=== PATIENT | male | born 1975 | race Caucasian/White ===

== ENCOUNTER 2021-12-25 13:46 | Inpatient (IN) | payer OTHER, SELFPAY ==
[2021-12-25] VITALS (79 sets, daily range): BP systolic 60–260; BP diastolic 40–232; PULSE 102–130; RESP 17–54; TEMP 36.1–38.2; O2SAT 83–100; BMI 22.7
--- NOTE | ~2021-12-25 | XR_ITS ---
EXAM: XR abdomen NG/feed tube insert DATE: 12/25/2021 22:29 HISTORY: OG INSERT . COMPARISON: None available. FINDINGS: NG tube tip and side port project over the stomach. Clear lung bases. Normal bowel gas bubba tamar. No organomegaly. No abnormal abdominal calcification. Regional bones and soft tissues normal for age. IMPRESSION: NG tube, in good position. No radiographic evidence of obstruction or ileus. Reviewed, dictated and finalized at location K.
--- NOTE | ~2021-12-25 | CT_ITS ---
EXAMINATION: CT brain wo con DATE: 12/25/2021 15:08 INDICATION: Unresponsive. Fall. TECHNIQUE: Computed tomography (CT) of the head was performed without intravenous contrast. The mA wa s adjusted according to patient size. Iterative reconstruction technique was employed. The dose-lengt h product was 529.67 mGy-cm. COMPARISON: None FINDINGS: There is an old infarct in left frontal lobe. There is no intracranial hemorrhage, acute in farction, or abnormal intracranial mass lesion. The ventricles are normal in size. The paranasal sinu ses are clear. The mastoid air cells are normal. The orbits are normal. There are calcifications in l eft frontal scalp. IMPRESSION: 1. Old infarct in left frontal lobe. Reviewed, dictated and finalized at location B.
--- NOTE | ~2021-12-25 | XR_ITS ---
EXAMINATION: XR chest 1V portable 12/25/2021 15:15 INDICATION: Transient alteration of awareness PROCEDURE: AP view of the chest COMPARISON: No prior studies for comparison. FINDINGS: The lungs are clear. The cardiomediastinal silhouette is within normal limits. There are no pleural effusions. There is no pneumothorax suspected. IMPRESSION: 1: NO ACUTE CARDIOPULMONARY DISEASE. Reviewed, dictated and finalized at location A.
--- NOTE | ~2021-12-25 | XR_ITS ---
XR chest ET placement 12/26/2021 09:00 Indication: Endotracheal tube placement Procedure: AP portable chest Comparison: 12/25/2021 Findings: Endotracheal tube tip 4.8 cm above the sarina. NG tube in the stomach. Heart size normal. L eft basilar airspace disease may represent atelectasis or pneumonia. No significant effusion or pneum othorax. Impression: 1: Left basilar airspace disease, atelectasis versus pneumonia. Reviewed, dictated and finalized at location B. Impression: 1: Left basilar airspace disease, atelectasis versus pneumonia.
--- NOTE | ~2021-12-25 | CT_ITS ---
EXAMINATION: CT cervical spine wo con DATE: 12/25/2021 15:08 INDICATION: Fall. TECHNIQUE: Computed tomography (CT) of the cervical spine was performed without intravenous contrast. Automated exposure control and iterative reconstruction technique were employed. The dose-length pro duct was 430.57 mGy-cm. COMPARISON: None FINDINGS: C1 is fused to the occiput. Posterior C1 ring is ununited, a normal variant. There is 7 deg medardo dextrocurvature of cervical spine. There is kyphosis of cervical spine. There is 2 mm retrolisth esis of C5 and C6. Vertebral body heights are normal. There is mildly decreased disc height at C4-C5 and moderately decreased disc height at C5-C6. The following disc levels are specifically discussed: C2-C3: There is mild bilateral uncovertebral joint osteoarthritis. There is severe right and mild lef t facet joint osteoarthritis. There is mild right neural foraminal stenosis. There is no central shannan l stenosis. C3-C4: There is mild bilateral uncovertebral joint osteoarthritis. There is mild left facet joint ost eoarthritis. There is no neural foraminal stenosis. There is no central canal stenosis. C4-C5: There is mild bilateral uncovertebral joint osteoarthritis. There is mild left facet joint ost eoarthritis. There is no neural foraminal stenosis. There is no central canal stenosis. C5-C6: There is severe bilateral uncovertebral joint osteoarthritis. There is mild right facet joint osteoarthritis. There is mild bilateral neural foraminal stenosis. There is mild central canal stenos is. C6-C7: There is mild right uncovertebral joint osteoarthritis. There is no facet joint osteoarthritis . There is no neural foraminal stenosis. There is no central canal stenosis. C7-T1: There is no uncovertebral joint osteoarthritis. There is mild bilateral facet joint osteoarthr itis. There is no neural foraminal stenosis. There is no central canal stenosis. IMPRESSION: 1. No fracture. 2. Moderate spondylosis at C5-C6 and mild spondylosis at other levels. Reviewed, dictated and finalized at location B.
--- NOTE | ~2021-12-25 | US_ITS ---
EXAMINATION: US abdomen limited DATE: 12/26/2021 10:27 INDICATION: Elevated liver function tests TECHNIQUE: Multiple grayscale and Doppler ultrasound images of the abdomen were obtained. COMPARISON: None available FINDINGS: The head and body of the pancreas are normal. The pancreatic tail is obscured by bowel gas. The liver demonstrates increased echogenicity, heterogenous echotexture, and decreased through trans mission. No surface nodularity. Normal hepatopetal flow in the main portal vein. The gallbladder is n ormal with no abnormal wall thickening, pericholecystic fluid or stones. The normal common bile duct measures 3 mm. There was no sonographic Moyer sign. IMPRESSION: 1. Diffuse hepatic steatosis. Reviewed, dictated and finalized at location A.
--- NOTE | ~2021-12-25 | XR_ITS ---
EXAMINATION: XR chest ET placement Exam Date/Time: 12/25/2021 22:20 CDT HISTORY: intubation Comparison: Same date, 3:11 PM. RESULT: Lines, tubes, and devices: Endotracheal tube terminating 5 mm above the sarina. NG tube traversing i mage terminating out of the [id number]. Lungs and pleura: Clear. Cardiomediastinal silhouette: Stable cardiomediastinal silhouette. Other: No acute osseous or upper abdominal finding. IMPRESSION: Low positioned endotracheal tube, consider 3.5 cm retraction. Reviewed, dictated and finalized at location K.
--- NOTE | 2021-12-25 13:47 | ED.AMS ---
HPI - Altered Mental Status General Chief Complaint: Altered Mental Status <Rajinder Rubio MD - Last Filed: 12/25/21 19:01> Stated Complaint: decreased LOC, AMS <Rajinder Rubio MD - Last Filed: 12/25/21 19:01> Time Seen by Provider: 12/25/21 18:57 <Rajinder Rubio MD - Last Filed: 12/25/21 19:01> Source: patient, EMS and RN notes reviewed <Rajinder Rubio MD - Last Filed: 12/25/21 19:01> Mode of arrival: EMS <Rajinder Rubio MD - Last Filed: 12/25/21 19:01> Limitations: clinical condition <Rajinder Rubio MD - Last Filed: 12/25/21 19:01> History of Present Illness HPI narrative: Patient is 46 years old white male came to the emergency room by ambulance from home. Patient lives at the second floor with his mom, did not see him for 3 days, got worried went upstairs and found him laying on the floor, moaning and incoherent,patient is known to drink of vodka daily, unknown last drink. In the ambulance patient had seizure-like activity lasted for 20 seconds and then became diaphoretic and unresponsive <Rajinder Rubio MD - Last Filed: 12/25/21 19:01> Related Data Home Medications: Home Medications Medication Instructions Recorded Confirmed No Home Medications 12/25/21 12/25/21 <Rajinder Rubio MD - Last Filed: 12/25/21 19:01> Allergies/Adverse Reactions: Allergies Allergy/AdvReac Type Severity Reaction Status Date / Time No Known Allergies Allergy Verified 12/25/21 14:29 <Rajinder Rubio MD - Last Filed: 12/25/21 19:01> Review of Systems Review of Systems: All systems reviewed & are unremarkable except as noted in HPI and below <Rajinder Rubio MD - Last Filed: 12/25/21 19:01> Exam Narrative: General appearance: Well-developed, well-nourished Skin: Multiple scattered bruises Head: Normocephalic, nontraumatic Eyes: Thick whitish, yellowish eye discharge bilaterally ENT: Oropharynx normal, ears normal, nose normal Neck: Supple, nontender Chest and respiratory: Airway patent, no respiratory distress, no accessory muscle use Heart: Regular rate/rhythm Abdomen: Soft, nontender, no organomegaly, quiet bowel sounds Vascular: Normal peripheral pulses, normal capillary refill. Musculoskeletal: Normal range of motion, nontender back Neurologic: Responsive to painful stimulation by opening eyes <Rajinder Rubio MD - Last Filed: 12/25/21 19:01> Course Course Emergency Course: Patient signed to me pending transfer to the [facility] at 1900. I did personally evaluate patient, he is still tachycardic, blood pressure now hypertensive, mental status near baseline, he is still quite tremulous so I did order additional doses of Ativan. I did note that his troponin had been elevated, personally saw his EKG did not note any STEMI I did order rectal ASA. [facility] has no ICU beds so case discussed with ICU Dr Bar and hospitalist Dr Cortes for admission, patient accepted. <Nelia Donaldson MD - Last Filed: 12/25/21 21:28> Reevaluation(s) Reevaluation #1: Patient arrived unresponsive, high likely postictal, subsequently became awake, alert and oriented x4, denying any pain, stating me last drink was last night, currently having tremors which is high likely alcohol withdrawal. Ativan IV ordered. Waiting to transfer patient to [facility]. <Rajinder Rubio MD - Last Filed: 12/25/21 19:01> Date: 12/25/21 <Rajinder Rubio MD - Last Filed: 12/25/21 19:01> Time: 18:55 <Rajinder Rubio MD - Last Filed: 12/25/21 19:01> Vital Signs Vital signs: Vital Signs Temperature 97 F L 12/25/21 13:50 Pulse Rate 125 H 12/25/21 13:50 Respiratory Rate 38 H 12/25/21 13:50 Blood Pressure 78/64 L 12/25/21
[2021-12-25 14:01] LABS: Glucose Point of Care 147 mg/dl (65-105)
[2021-12-25] MEDS: THIAMINE HCL 200 MG/2 ML VIAL 100 MG IV PUSH (14:03)
[2021-12-25] MEDS: SODIUM CHLORIDE 0.9% IV 1,000 ML 999 ML IV CONT ×3 (14:06→14:28)
[2021-12-25 14:11] LABS: Basophils Absolute Auto 0.1 K/mm3 (0.0-0.1); Basophils Percent Auto 0.6 % (0.2-1.2); Hematocrit 49.1 % (42.0-52.0); Hemoglobin 15.5 g/dL (14.0-18.0); Immature Granulocyte Absolute 0.16 K/mm3 (0.00-0.031); Immature Granulocyte Percent A 1.2 % (0-0.5); Lymphocytes Absolute Auto 1.21 K/mm3 (0.9-3.2); Lymphocytes Percent Auto 8.9 % (18.3-44.2); Mean Corpuscular HGB Conc 31.6 g/dl (32-36); Mean Corpuscular Volume 104.5 fl (80-100); Monocytes Absolute Auto 1.6 K/mm3 (0.1-0.6); Monocytes Percent Auto 11.9 % (2.6-8.5); Neutrophils Absolute Auto 10.5 K/mm3 (1.3-6.7); Neutrophils Percent Auto 77.4 % (45.5-73.1); Nucleated Red Blood Cells Perc 0.1 % (0.0-0.2); Platelet Count Result 181 k/mm3 (150-375); Red Cell Distribution Width 13.6 % (11.5-14.5); White Blood Count 13.5 K/mm3 (4.5-10.0)
[2021-12-25 14:24] LABS: INR 1.2; Prothrombin Time 14.9 Seconds (11.1-14.7)
[2021-12-25 14:25] LABS: Partial Thromboplastin Time 31.3 SECONDS (22.3-36.8)
--- NOTE | 2021-12-25 14:27 | PC.NURSE ---
pt is alert and answering most questions at this time. states his name and . 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
[2021-12-25 14:33] LABS: Lactic Acid Reflex 6.7 mmol/L (0.7-2.0)
[2021-12-25] MEDS: MULTIVITAMINS-12 INJ VIAL 1 5 ML, MULTIVITAMINS-12 INJ VIAL 2 5 ML in SODIUM CHLORIDE 0... 100 ML IV CONT (14:35)
[2021-12-25] MEDS: FOLIC ACID 1 MG/0.2 ML INJ IV PUSH (14:35)
[2021-12-25 14:36] LABS: Ethanol < 10 mg/dL (<10)
[2021-12-25 14:36] LABS: Alveolar/Arterial O2 Gradient 107.4 mmHg; Base Excess ABG -14.3 mEq/l (+/-2.0); Fractional Inspired Oxygen 36 %; HCO3 ABG 8.5 mEq/l (22.0-26.0); Oxygen Content ABG 18.5 %vol (16.0-22.0); Oxygen Saturation ABG 98.6 % (95.0-100.0); Oxyhemoglobin 97.3 % THb (90.0-100.0); PO2 ABG 131.1 mmHg (80.0-100.0); PO2 FiO2 Ratio Arterial Blood 3.64 %; Total Hemoglobin 13.4 g/dL (12.0-18.0); pH ABG 7.351 (7.350-7.450)
[2021-12-25 14:39] LABS: Device NASAL CANNULA; Modified Allen's Test Pass; PCO2 ABG 15.7 mmHg (35.0-45.0); Site Drawn RIGHT RADIAL
[2021-12-25 14:43] LABS: Ammonia 50 umol/L (9-30)
[2021-12-25 14:49] LABS: Alanine Aminotransferase 125 U/L (6-50); Albumin Level 4.9 g/dL (3.5-5.1); Alkaline Phosphatase 234 U/L (38-126); Anion Gap 34 mmol/L (8-16); Aspartate Amino Transferase 309 U/L (17-59); Bilirubin,Total 3.3 mg/dL (0.2-1.3); Blood Urea Nitrogen 52 mg/dL (9-20); Calcium 9.4 mg/dL (8.4-10.2); Carbon Dioxide 10 mmol/L (22-30); Chloride 112 mmol/L (98-107); Creatine Kinase 758 U/L (55-170); Estimated CRCL calculation 22 ml/min; Estimated Glomerular Filt Rate 20; Glucose 130 mg/dL (65-110); Magnesium 2.3 mg/dL (1.6-2.3); Potassium 3.4 mmol/L (3.4-5.0); Sodium 156 mmol/L (137-145)
[2021-12-25 15:13] LABS: Troponin I 0.129 ng/mL (0.000-0.034)
--- NOTE | 2021-12-25 15:23 | ECG_ITS ---
Measurements Intervals [place] Rate: 123 P: 0 UT: 90 QRS: 75 QRSD: 100 T: 147 QT: 373 QTc: 536 Interpretive Statements SINUS TACHYCARDIA T WAVE ABNORMALITY IN ANTEROLAT/HIGH LAT LEADS- CONSIDER ISCHEMIA BASELINE ARTIFACT- I, II, III, AVR, AVL, AVF ABNORMAL ECG Electronically Signed On 12-25-2021 20:00:51 CDT by Arnold Martines D.O.
[2021-12-25 15:29] LABS: SARS-CoV-2 RNA PCR Negative
[2021-12-25 15:43] LABS: Appearance Urine Cloudy (Clear); Bilirubin Urine 2+ (Negative); Blood Urine 3+ (Negative); Color Urine Yellow (Yellow); Glucose Urine UA Negative (Negative); Ketones Urine 2+ mg/dL (Negative); Leukocyte Esterase Ur Negative LEU/UL (Negative); Nitrate Urine Negative (Negative); Protein Urine 3+ mg/dL (Negative); Specific Grav Ur 1.015 (1.001-1.035); pH Urine 5.5 (5.0-9.0)
--- NOTE | 2021-12-25 15:48 | PC.NURSE ---
faxed to [facility] for possible admission
[2021-12-25 15:55] LABS: Amphetamine Screen Urine Negative (Negative); Barbiturate Screen Urine Negative (Negative); Benzodiazepines Screen Urine Negative (Negative); Cannabinoid Screen Urine Negative (Negative); Cocaine Screen Urine Negative (Negative); Methadone Screen Urine Negative (Negative); Opiate Screen Urine Negative (Negative); Phencyclidine Screen Urine Negative (Negative)
[2021-12-25 15:57] LABS: Amorphous Sediment Urine Few; Bacteria Urine Trace /hpf; Hyaline Casts Urine 50+ /lpf; Mucus Urine Rare /lpf; Squamous Epithelial Cell Urine Many /hpf (Few); WBC Clumps Urine Present /HPF
--- NOTE | 2021-12-25 16:05 | PCCCNOTE ---
Approached by Fire Dept/EMS transport showed pictures of scene with hoarding, beer cans. Chief went to scene and initiated a call to [facility] Crisis Intervention Team at [phone] and they request that acute care physical therapist call the crisis team. Per bedside RNChelsey he is alert and oriented and able to talk to acute care physical therapist. Met with patient at bedside, introduced self and explained role. He denies any problems with alcohol and states that they last time that he drank was a week ago. Denies wanting any help for alcohol abuse. Asked him about the living environment which fire dept felt was unsafe, he states that he can clean it up. Patient confirms [facility] insurance, does not have any specialty providers but [facility]. Asked about the living arrangements with his mom, he states that he does cook and helps her with her laundry but she can take care of herself. He states that he had two tours overseas one in [place] and one in [place] reports that his Dad when he was overseas in [place]. He has been living with his mom since 2010. States that he was advised to talk to someone one time but he doesn't want to share his life with someone that he doesn't know. Explained that we will be working with doctors to get [facility] but if they don't have a bed then we will take care of him here. Phlebotomy Services Technician spoke with [facility] and possibility of some medical beds. pc maintenance technician Shazia [facility] the [facility]. Called to [facility] Crisis Intervention team at [phone], spoke with [facility], he states that they transfer to [facility] has been initiated for the patient and bed placement team will call ER with any updates regarding bed. [facility] states after medical treatment, stabilization, their Crisis Team will be called to assist.
[2021-12-25 16:34] LABS: Add Urine Microscopic? YES
[2021-12-25] MEDS: LORazepam INJ (*CRX) 2 MG/ML VIAL 1 MG IV PUSH ×2 (16:55→19:44)
[2021-12-25 17:08] LABS: Reflex Lactic Acid Yes or No Add Lactic
[2021-12-25 17:53] LABS: Lactic Acid 2.1 mmol/L (0.7-2.0)
[2021-12-25] MEDS: LORazepam INJ (*CRX) 2 MG/ML VIAL (20:27)
--- NOTE | 2021-12-25 20:28 | PC.NURSE ---
tanya ativan 2mg iv push stat erp dr lagunas
--- NOTE | 2021-12-25 20:28 | PC.NURSE ---
pt noted to have increased shaking and decreased mentation. ERP ordered 2 mg ivp ativan. Pt unable to answer questions at this time
[2021-12-25] MEDS: LORazepam INJ (*CRX) 2 MG/ML VIAL IV PUSH (21:18)
--- NOTE | 2021-12-25 21:27 | PM.IMHP ---
H&P: HPI History of Present Illness Date/Time: 12/25/21 21:27 Chief Complaint: Unresponsive Narrative: 46-year-old male with past medical history of alcoholism was brought into the ER via EMS when he was found unresponsive at home. The patient lives in same home as his mother but lives of stairs. His mother had not seen the patient for 3 days and went to check on the patient today. She found the patient lying on the floor moaning in incoherent. The patient is known to drink vodka heavily. Reportedly at least 1 pt a day. EMS said for did that the patient had numerous empty bottles of alcohol in the home. Home was hoarding conditions. The patient was found covered in feces and urine. He had evidence of skin breakdown rashes and multiple bruises. In the ER the patient was noted to be shaking violently. ER staff and initially felt the patient was simply having alcohol withdrawal with tremors. At the time my evaluation at the bedside the patient was having rhythmic eye movements to the left and was unresponsive. After about a minute the eye movements stopped and the patient did moan out response with sternal rub shortly thereafter. But within admitted her to the patient again had rhythmic movement of his eyes. The patient was unable to follow commands. He had Yoo catheter placed in the ER. While in the ER the patient did spike a fever to 100.7. The patient had nasal cannula in place at 2 L. he had received total of 10 mg of Ativan throughout his ER course. He had received 2 L of IV fluids and a dose of thiamin. When I evaluated the patient and felt the patient was having recurrent seizures. He was maintaining his oxygen saturations but given its need for large amounts sedation and clinical status that was concerned for airway status. Subsequently have any decision to intubate the patient. Patient received volume due to seizure-like activity just prior to intubation. Then received RSI with propofol and rocuronium. Into patient was relatively uncomplicated with 7.5 ET tube. Post intubation even when sedation was weaned the patient not following commands. He was having recurrent jerking and eye deviation. The patient would have periods of decreased jerking and suspected seizure activity. Post intubation the patient did have transient hypotension. The patient received another L in fluid bolus. Patient was moved to the ICU and sedated with propofol. Once he arrived in the ICU the patient's blood pressures initially improved but then dropped again despite propofol being held. Subsequently I placed a right femoral line. And Levophed was initiated. patient was placed on Levophed. Patient was given loading dose of Keppra. While patient was in the ER and being prepared for transfer to the ICU when nursing staff gave aspirin ordered by your provider due to the patient's elevated troponin. When nursing staff went to give aspirin patient was noted to have radha blood per rectum.. The patient's brother denied the patient having any known history of tobacco or other substance use. In fact brother did not know but the patient having history of alcohol abuse. 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
[2021-12-25] MEDS: LACTATED RINGERS 1,000 ML 125 ML IV CONT (21:30)
[2021-12-25] MEDS: SODIUM BICARBONATE 8.4% 50 MEQ/50 ML SYRINGE IV PUSH (21:30)
--- NOTE | 2021-12-25 21:50 | PC.NURSE ---
Hospitalist at bedside to intubate. Valium 10 mg IVP Given.
--- NOTE | 2021-12-25 21:51 | PC.NURSE ---
150 mg propofol given IVP, RT and hospitalist at bedside.
[2021-12-25] MEDS: diazePAM INJ (*CRX) 10 MG/2 ML SYRINGE (21:52)
--- NOTE | 2021-12-25 21:52 | PC.NURSE ---
Rocruronium 25 mg given.
[2021-12-25] MEDS: RAPID SEQUENCE INTUBATION KIT 1 EACH (21:53)
--- NOTE | 2021-12-25 21:54 | PC.NURSE ---
7.5 ETT , 25 cm at the lip
--- NOTE | 2021-12-25 22:03 | PC.NURSE ---
LR changed to bolus rate per hospitalist.
--- NOTE | 2021-12-25 22:03 | PC.NURSE ---
rate 18, TV 450ml , peep 5, 50% oxygen
[2021-12-25 22:05] LABS: Anion Gap 20 mmol/L (8-16); Blood Urea Nitrogen 46 mg/dL (9-20); Calcium 8.1 mg/dL (8.4-10.2); Carbon Dioxide 13 mmol/L (22-30); Chloride 119 mmol/L (98-107); Estimated CRCL calculation 36 ml/min; Estimated Glomerular Filt Rate 36; Glucose 121 mg/dL (65-110); Sodium 152 mmol/L (137-145)
[2021-12-25 22:17] LABS: Troponin I 0.159 ng/mL (0.000-0.034)
--- NOTE | 2021-12-25 22:23 | ED.GENADULT ---
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 CT scan 12/25/2021 Surgical History Surgical History Surgical history unknown Family History Family History Other Unknown family medical history Social History Social History Smoking status: Unknown if ever smoked Alcohol intake: current Spiritual care concerns: No Course Vital Signs Vital signs: Vital Signs Temperature 97 F L 12/25/21 13:50 Pulse Rate 125 H 12/25/21 13:50 Respiratory Rate 38 H 12/25/21 13:50 Blood Pressure 78/64 L 12/25/21 13:50 Pulse Oximetry 100 12/25/21 13:50 Temperature 97.9 F 12/26/21 16:00 Pulse Rate 69 12/26/21 16:14 Respiratory Rate 18 12/26/21 16:14 Blood Pressure 133/82 12/26/21 16:00 Pulse Oximetry 100 12/26/21 16:00 Oxygen Delivery Mechanical Ventilation 12/26/21 16:00 Oxygen Flow Rate 2 12/25/21 20:36 Fraction of Inspired Oxygen 25 12/26/21 16:00 Medical Decision Making Vital Signs Vital Signs: Vital Signs Temperature 97 F L 12/25/21 13:50 Pulse Rate 125 H 12/25/21 13:50 Respiratory Rate 38 H 12/25/21 13:50 Blood Pressure 78/64 L 12/25/21 13:50 Pulse Oximetry 100 12/25/21 13:50 Temperature 97.9 F 05/19/22 16:00 Pulse Rate 69 12/26/21 16:14 Respiratory Rate 18 12/26/21 16:14 Blood Pressure 133/82 12/26/21 16:00 Pulse Oximetry 100 12/26/21 16:00 Oxygen Delivery Mechanical Ventilation 12/26/21 16:00 Oxygen Flow Rate 2 12/25/21 20:36 Fraction of Inspired Oxygen 25 12/26/21 16:00 Lab Data Result diagrams: 12/26/21 06:39 12/26/21 10:23 Labs: Lab Results 12/25/21 12/25/21 12/25/21 Range/Units 13:52 13:55 13:55 WBC 13.5 H (4.5-10.0) K/mm3 RBC 4.70 (4.6-6.20) M/mm3 Hgb 15.5 (14.0-18.0) g/dL Hct 49.1 (42.0-52.0) % MCV 104.5 H (80-100) fl MCH 33.0 (26-34) pg MCHC 31.6 L (32-36) g/dl RDW 13.6 (11.5-14.5) % Plt Count 181 (150-375) k/mm3 MPV 11.0 H (7.4-10.4) fl Immature Gran % (Auto) 1.2 H (0-0.5) % Neut % (Auto) 77.4 H (45.5-73.1) % Lymph % (Auto) 8.9 L (18.3-44.2) % Lanier % (Auto) 11.9 H (2.6-8.5) % Eos % (Auto) 0.0 (0-4.4) % Baso % (Auto) 0.6 (0.2-1.2) % Lymph # (Auto) 1.21 (0.9-3.2) K/mm3 Lanier # (Auto) 1.6 H (0.1-0.6) K/mm3 Eos # (Auto) 0.0 (0-0.3) K/mm3 Baso # (Auto) 0.1 (0.0-0.1) K/mm3 Abs Immat Gran (auto) 0.16 H (0.00-0.031) K/mm3 Absolute Neuts (auto) 10.5 H (1.3-6.7) K/mm3 Absolute Nucleated RBC 0.0 (0.0-0.012) K/mm3 Nucleated RBC % 0.1 (0.0-0.2) % PT (11.1-14.7) Seconds INR APTT (22.3-36.8) SECONDS Sodium 156 H (137-145) mmol/L Potassium 3.4 (3.4-5.0) mmol/L Chloride 112 H (98-107) mmol/L Carbon Dioxide 10 L (22-30) mmol/L Anion Gap 34 H (8-16) mmol/L BUN 52 H (9-20) mg/dL Creatinine 3.30 H (0.7-1.3) mg/dL Estim Creat Clear Calc 22 ml/min Estimated GFR 20 L (59 - ) Glucose 130 H (65-110) mg/dL POC Capillary Glucose 147 H (65-105) mg/dl Lactic Acid (0.7-2.0) mmol/L Calcium 9.4 (8.4-10.2) mg/d
[2021-12-25] MEDS: AMPICILLIN SULB 3 GM/NS 100 ML 3 GM/100 ML VIAL IVPB (22:25)
[2021-12-25] MEDS: PROPOFOL IV EMULSION 200 MG/20 ML VIAL 150 MG IV PUSH (22:26)
[2021-12-25] MEDS: ASPIRIN 300 MG SUPPOSITORY RECTAL (22:26)
[2021-12-25] MEDS: ROCURONIUM BROMIDE 50 MG/5 ML VIAL 25 MG IV PUSH (22:26)
[2021-12-25] MEDS: PROPOFOL IV EMULSION 100 ML 1.83 MG IV CONT (22:29)
--- NOTE | 2021-12-25 22:29 | PC.NURSE ---
Pt guaic positive, provider made aware
--- NOTE | 2021-12-25 23:10 | ADMGEN ---
This patient, Marlon Cleveland, was admitted to Intensive Care Unit-11. Patient/family oriented to hospital policies and general routines including ID bracelet, bed and alarms, visiting hours, pain management, procedures, bathroom and other care routines, personal items, smoking policy, room service/diet, and visiting hours. Information on how to activate the Rapid Response Team has been discussed. Patient/Family are encouraged to report perceived risks to care and to ask questions if they do not understand what they are told or what they should do.
[2021-12-25 23:25] LABS: Folic Acid > 20.0 ng/mL (2.76->20)
[2021-12-25] MEDS: PANTOPRAZOLE SODIUM IV 40 MG VIAL 80 MG IV PUSH (23:46)
[2021-12-25] MEDS: MINERAL OIL/WHITE PETROLATUM OINTMENT 1 APPLIC EACH EYE (23:46)
[2021-12-26] VITALS (39 sets, daily range): BP systolic 55–133; BP diastolic 36–88; PULSE 65–108; RESP 16–21; TEMP 36.4–38.2; O2SAT 98–100; BMI 23.3
--- NOTE | 2021-12-26 | ECHO_ITS ---
Patient Info Name: Marlon Cleveland Age: 46 years : 1975 Gender: Male Ht: 67 in Wt: 148 lbs BSA: 1.79 m2 HR: 72 bpm BP: 127 / 91 mmHg Heart Rhythm: Sinus Rhythm Technical Quality: Fair Exam Date: 12/26/2021 1:46 PM Exam Location: [facility] Patient Status: Inpatient Admit Date: 12/25/2021 Staff Ordering Physician: Nicole Bar MD Associate Store Director: Anaya Lozada RDCS Attending Provider: Nicole Bar MD Referring Physician: Yosvany PRIETO; Exam Type: CA echo dop color flow w con Study Info Indications - ELEVATED TROPONIN R94.31 - Abnormal electrocardiogram ECG EKG Complete two-dimensional, color flow and Doppler transthoracic echocardiogram is performed with contrast to opacify the left ventricle and to improve the deliniation of the left ventricle endocardial borders. Contrast/Agitated Saline Contrast/Ag. Saline: Definity Amount: 3.00 ml Administered By: Anaya Lozada RDCS Existing IV Access: Yes IV Access Condition: patent with no signs of infiltration Summary 1. Left ventricular systolic function is low normal, estimated at 50-55%. 2. Left ventricular chamber dimension is normal. 3. There is mildly increased left ventricular wall thickness. 4. The left ventricular diastolic function is grade I diastolic dysfunction. 5. There is mild tricuspid valve regurgitation. Left Ventricle Left ventricular systolic function is low normal, estimated at 50-55%. Left ventricular chamber dimension is normal. There is mildly increased left ventricular wall thickness. The left ventricular diastolic function is grade I diastolic dysfunction. Right Ventricle Right ventricular chamber dimension is normal. Right ventricular systolic function is normal. Left Atria Left atrial chamber dimension is normal. Right Atria Right atrial chamber dimension is normal. Atrial Septum Intact interatrial septum visualized by color flow imaging. Aortic Valve The aortic valve is trileaflet. There is no aortic valve sclerosis. There is no aortic valve stenosis. There is trace aortic valve regurgitation. Pulmonic Valve The pulmonic valve is normal. There is no pulmonic valve stenosis. There is trace pulmonic regurgitation. Mitral Valve The mitral valve has normal leaflets. There is no mitral valve stenosis. There is trace mitral valve regurgitation. Tricuspid Valve The tricuspid valve leaflets are normal. There is no significant tricuspid valve stenosis. There is mild tricuspid valve regurgitation. No pulmonary hypertension, estimated pulmonary arterial systolic pressure is 29 mmHg. Pericardium/Pleural The pericardium appears normal. There is no pericardial effusion. Inferior Vena Cava Normal inferior vena cava with >50% collapse upon inspiration consistent with normal right atrial pressure, 10 mmHg. Aorta The aortic root size at the sinus of Valsalva is normal. Left Ventricular Outflow Tract Name Value Normal LVOT 2D LVOT Diameter 2.05 cm LVOT Doppler LVOT Peak Gradient 3 mmHg
[2021-12-26] MEDS: dexmedeTOMIDine 400 MCG/100 ML 400 MCG/100 ML BAG IV CONT (00:17)
[2021-12-26 00:21] LABS: Alveolar/Arterial O2 Gradient 133.5 mmHg; Base Excess ABG -6.3 mEq/l (+/-2.0); Carboxyhemoglobin 0.3 % THb (0-2.0); Fractional Inspired Oxygen 50 %; HCO3 ABG 16.4 mEq/l (22.0-26.0); Methemoglobin ABG 0.3 %THb (0-1.5); Oxygen Content ABG 18.2 %vol (16.0-22.0); Oxygen Saturation ABG 99.4 % (95.0-100.0); Oxyhemoglobin 97.9 % THb (90.0-100.0); PCO2 ABG 25.3 mmHg (35.0-45.0); PO2 ABG 194.5 mmHg (80.0-100.0); PO2 FiO2 Ratio Arterial Blood 3.89 %; Reduced Hemoglobin 1.5 %THb (0-5.0); Total Hemoglobin 12.9 g/dL (12.0-18.0); pH ABG 7.429 (7.350-7.450)
[2021-12-26 00:25] LABS: Arterial Blood Gas PEEP 5 cmH2O; Arterial Blood Gas Tidal Volume 450 ml; Arterial Blood Gas Vent Mode CMV; Arterial Blood Gas Ventilator rate 18 /MIN; Device VENTILATOR; Modified Allen's Test Pass; Site Drawn RIGHT RADIAL
[2021-12-26] MEDS: SODIUM CHLORIDE 0.9% IV 1,000 ML 999 ML IV CONT (00:25)
[2021-12-26] MEDS: NOREPINEPHRINE 8 MG/D5W 250 ML 8 MG/250 ML BAG 9.38 MG IV CONT (00:51)
[2021-12-26] MEDS: SODIUM BICARBONATE 8.4% 50 MEQ/50 ML SYRINGE 100 MEQ IV PUSH (00:54)
[2021-12-26] MEDS: FENTANYL 2,500MCG/NS250ML(*CRX 2,500 MCG/250 ML BAG IV CONT (01:10)
[2021-12-26] MEDS: MIDAZOLAM 100MG/NS 100ML(*CRX) 100 MG/100 ML BAG IV CONT (01:10)
--- NOTE | 2021-12-26 01:47 | WPDPROCEDUR ---
Procedures Central Line Placement Right Femoral: Central Line Date: 12/26/21 Central Line Time: 01:20 Discussed w/ the patient/family/POA,the placement of a central venous catheter, including its clinical necessity/indication & associated potential risks, benifits and alternatives.: Yes The patient/family/POA understand(s) and acknowledge(s) the need to proceed with central venous catheter insertion as an important element of the patient's clinical management.: Yes Time Out Performed: Yes Patient Position: trendelenburg Patient placed on monitor/pulse ox: Yes Provider Prep: mask, sterile gown, sterile gloves, Max. sterile barrier precautions, cap and hand hygiene with conventional soap/water or alcohol based hand rub Central line prep: 2% Chlorhexidine scrub Local anesthesia used: lidocaine 1% Amount of anesthesia used (ml): 3 Sterile US Technique with sterile gel/sterile probe covers: Yes Central line lumen inserted: triple Vietnamese: 7 Length (cm): 16 Depth of Insertion (cm): 15 Post Procedure: sutured in place, good blood return, all ports aspirated, flushed, capped, transparent dressing, securement product and aseptic technique maintained throughout procedure Patient tolerated procedure: well Complications: none
[2021-12-26] MEDS: SODIUM CHLORIDE 0.9% IV 1,000 ML 150 ML IV CONT ×2 (01:55→09:23)
[2021-12-26] MEDS: levETIRAcetam 1000MG/NACL100ML 1,000 MG/100 ML BAG 400 MG IVPB ×2 (02:05→09:25)
--- NOTE | 2021-12-26 03:29 | P.PCNBED_ITS ---
Procedures Intubation Intubation Date: 12/25/21 Intubation Time: 22:05 Consent: Performed emergently Sedative: other (Propofol and diazepam) Paralytic: rocuronium Laryngoscope: fiber optic video scope ET tube size: cuffed Tube secured depth (cm): 24 Tube secured location: lips Tube placement confirmation: visualized tube passing through cords, equal breath sounds bilaterally, no breath sounds over epigastrium and confirmation by capnometry Patient tolerated procedure: well Additional comments: Patient was given diazepam due to seizures. He then received a dose of propofol dosed by ER provider. Patient is also given 25 mg of rocuronium. I initially attempted intubation with a 0.0 ET tube but was slightly too large. Second attempt was 7.5 ET tube was uncomplicated. Chest x- ray was reviewed and demonstrated ET tube was deep. Patient ET tube was pulled back to 25 cm.
[2021-12-26] MEDS: AMPICILLIN SULB 3 GM/NS 100 ML 3 GM/100 ML VIAL IVPB ×3 (04:01→15:47)
[2021-12-26 05:34] LABS: Alveolar/Arterial O2 Gradient 55.3 mmHg; Base Excess ABG -5.7 mEq/l (+/-2.0); Carboxyhemoglobin 0.2 % THb (0-2.0); Fractional Inspired Oxygen 25 %; HCO3 ABG 17.1 mEq/l (22.0-26.0); Methemoglobin ABG 0.1 %THb (0-1.5); Oxygen Content ABG 16.2 %vol (16.0-22.0); Oxygen Saturation ABG 97.4 % (95.0-100.0); Oxyhemoglobin 95.1 % THb (90.0-100.0); PCO2 ABG 26.2 mmHg (35.0-45.0); PO2 ABG 91.8 mmHg (80.0-100.0); PO2 FiO2 Ratio Arterial Blood 3.67 %; Reduced Hemoglobin 4.6 %THb (0-5.0); Site Drawn LEFT BRACHIAL; pH ABG 7.433 (7.350-7.450)
[2021-12-26 05:35] LABS: Arterial Blood Gas PEEP 5 cmH2O; Arterial Blood Gas Tidal Volume 450 ml; Arterial Blood Gas Vent Mode CMV; Arterial Blood Gas Ventilator rate 18 /MIN; Device VENTILATOR
[2021-12-26] MEDS: CENTRAL LINE FLUSH 10 ML IV PUSH ×2 (05:41→13:20)
[2021-12-26 05:55] LABS: Ammonia < 9 umol/L (9-30)
[2021-12-26 06:27] LABS: Alanine Aminotransferase 92 U/L (6-50); Albumin Level 3.6 g/dL (3.5-5.1); Alkaline Phosphatase 156 U/L (38-126); Anion Gap 18 mmol/L (8-16); Aspartate Amino Transferase 221 U/L (17-59); Bilirubin,Total 1.7 mg/dL (0.2-1.3); Blood Urea Nitrogen 41 mg/dL (9-20); Calcium 7.6 mg/dL (8.4-10.2); Carbon Dioxide 17 mmol/L (22-30); Chloride 121 mmol/L (98-107); Creatine Kinase 809 U/L (55-170); Estimated CRCL calculation 45 ml/min; Estimated Glomerular Filt Rate 43; Glucose 128 mg/dL (65-110); Magnesium 2.2 mg/dL (1.6-2.3); Phosphorus 3.1 mg/dL (2.5-4.5); Potassium 2.9 mmol/L (3.4-5.0); Sodium 156 mmol/L (137-145)
[2021-12-26 06:48] LABS: Basophils Absolute Auto 0.1 K/mm3 (0.0-0.1); Basophils Percent Auto 0.9 % (0.2-1.2); Eosinophils Percent Auto 0.1 % (0-4.4); Hemoglobin 10.7 g/dL (14.0-18.0); Immature Granulocyte Absolute 0.05 K/mm3 (0.00-0.031); Immature Granulocyte Percent A 0.5 % (0-0.5); Lymphocytes Percent Auto 12.4 % (18.3-44.2); Mean Corpuscular HGB Conc 32.4 g/dl (32-36); Mean Corpuscular Hemoglobin 33.5 pg (26-34); Mean Corpuscular Volume 103.4 fl (80-100); Mean Platelet Volume 10.3 fl (7.4-10.4); Monocytes Percent Auto 10.4 % (2.6-8.5); Neutrophils Absolute Auto 7.3 K/mm3 (1.3-6.7); Neutrophils Percent Auto 75.7 % (45.5-73.1); Platelet Count Result 107 k/mm3 (150-375); Red Blood Count 3.19 M/mm3 (4.6-6.20); Red Cell Distribution Width 13.9 % (11.5-14.5); White Blood Count 9.7 K/mm3 (4.5-10.0)
--- NOTE | 2021-12-26 09:19 | WPDCNINT ---
Assessment and Plan Assessment and plan (1) Acute respiratory failure with hypoxia: Code(s): J96.01 - Acute respiratory failure with hypoxia Status: Acute Assessment and Plan: Patient was intubated on 12/26/2021 due to encephalopathy/unresponsiveness, airway protection -chest x-ray and ABGs reviewed -currently on CMV mode of ventilation, peep of 5 and FiO2 of 25% -sedated with fentanyl and Versed infusion, daily sedation vacation 2, will maintain a RASS of 0--2 (2) Alcohol withdrawal seizure with complication: Code(s): F10.239 - Alcohol dependence with withdrawal, unspecified; R56.9 - Unspecified convulsions Status: Acute Assessment and Plan: Patient with tremors and seizures, could be related to alcohol withdrawal or previous stroke in the frontal region as evident on CT scan of the head on admission -patient currently on Keppra -will add librium and pt is on PRN ATIVAN continue thiamine and folic acid (3) Acute renal failure: Qualifiers: Acute renal failure type: with acute tubular necrosis Qualified Code(s): N17.0 - Acute kidney failure with tubular necrosis Code(s): N17.9 - Acute kidney failure, unspecified Status: Acute Assessment and Plan: Patient with acute kidney injury, likely related to hypovolemia, possible rhabdomyolysis, hypotension -patient received adequate amount of IV fluids in the ER and ICU -continue with maintenance IV fluids -urine output has been, creatinine is improving -continue to monitor urine output, renal function electrolytes (4) Acute hypernatremia: Code(s): E87.0 - Hyperosmolality and hypernatremia Status: Acute Assessment and Plan: Hyponatremia related to dehydration/hypovolemia -patient has been adequately volume repleted -will switch IV fluids to 0.45% saline -will obtain serial BMPs (5) Elevated troponin: Code(s): R77.8 - Other specified abnormalities of plasma proteins Status: Acute Assessment and Plan: Elevated troponin could be related to acute kidney injury -EKG showed T-wave inversion in anterior and lateral leads -will recheck EKG and troponin -unable to administer heparin or any anticoagulation as patient had blood in stools in the ER (6) Elevated liver enzymes: Code(s): R74.8 - Abnormal levels of other serum enzymes Status: Acute Assessment and Plan: Elevated LFTs could be related to hypovolemia, alcohol liver disease, gallbladder disease -will obtain right upper quadrant ultrasound and hepatitis panel -LFTs and bilirubin trending down (7) Shock: Code(s): R57.9 - Shock, unspecified Status: Acute Assessment and Plan: Patient was hypotensive post intubation and sedation -central line was inserted in the right femoral line early this morning started on Levophed at 1 mcg/min -patient has been started on Unasyn for possible aspiration pneumonitis -lactic acid is trending down which could have been related to seizure activity -blood and urine cultures have been obtained and pending (8) GI bleed: Code(s): K92.2 - Gastrointestinal hemorrhage, unspecified Status: Acute Assessment and Plan: ER nurse noted blood in stools which she was going to administer aspirin for the elevated troponins -chest pain was not administered -GI has been consulted -hemoglobin dropped from 15.5 to 10.7 this morning, could be dilutional or GI bleed -continue PPI we q.12 hours Additional Plan DVT prophylaxis: SCDs as patient had some bloody stools in the ER Stress ulcer prophylaxis: Protonix Nutrition: NPO for now Code status: Full code Critical care time spent: 45 minutes This dictation may have been done utilizing a voice recognition system. Attempts have been made to correct errors. However, there may be uncorrected grammatical, spelling, and recognition errors present. Due to a high probability of clinically significant, life threatening deter
[2021-12-26] MEDS: FOLIC ACID 1 MG/0.2 ML INJ IV PUSH (09:25)
[2021-12-26] MEDS: THIAMINE HCL 200 MG/2 ML VIAL 100 MG IV PUSH (09:26)
[2021-12-26] MEDS: PANTOPRAZOLE SODIUM IV 40 MG VIAL IV PUSH (09:26)
[2021-12-26] MEDS: MINERAL OIL/WHITE PETROLATUM OINTMENT 1 APPLIC EACH EYE (09:26)
[2021-12-26] MEDS: SODIUM CHLORIDE 0.45% 1,000 ML 100 ML IV CONT (09:41)
--- NOTE | 2021-12-26 09:52 | ECG_ITS ---
Measurements Intervals [place] Rate: 66 P: 72 [place]: 142 QRS: 2 QRSD: 107 T: 152 QT: 553 QTc: 580 Interpretive Statements SINUS RHYTHM DELAYED PRECORDIAL R/S TRANSITION INFERIOR INFARCT, AGE INDETERMINATE ST-T WAVE ABNORMALITY IN ANTEROLAT/HIGH LAT LEADS- CONSIDER ISCHEMIA BASELINE ARTIFACT- I, II, AVR ABNORMAL ECG Electronically Signed On 12-26-2021 10:38:39 CDT by Arnold Martines D.O.
[2021-12-26 10:47] LABS: Anion Gap 14 mmol/L (8-16); Blood Urea Nitrogen 36 mg/dL (9-20); Calcium 7.6 mg/dL (8.4-10.2); Carbon Dioxide 20 mmol/L (22-30); Chloride 123 mmol/L (98-107); Estimated CRCL calculation 55 ml/min; Estimated Glomerular Filt Rate 54; Glucose 116 mg/dL (65-110); Potassium 2.9 mmol/L (3.4-5.0); Sodium 157 mmol/L (137-145)
--- NOTE | 2021-12-26 11:15 | WPDGICN ---
Assessment and Plan Assessment and plan (1) GI bleed: Code(s): K92.2 - Gastrointestinal hemorrhage, unspecified Status: Acute Assessment and Plan: Because of the history of alcohol use in abnormal liver enzymes, the esophageal variceal bleed is a possibility. However there has been no blood seen in his NG tube at this point and the blood was seen in the emergency room apparently was red. He has had no further bleeding so far that I am aware of. Will obtain stool for Hemoccult. I will plan endoscopy tomorrow morning assuming he is more stable. (2) Elevated liver enzymes: Code(s): R74.8 - Abnormal levels of other serum enzymes Status: Acute Assessment and Plan: AST was 309 yesterday in 221 today ALT likewise has come down somewhat. Albumin is actually normal range. (3) Hyperbilirubinemia: Code(s): E80.6 - Other disorders of bilirubin metabolism Status: Acute Assessment and Plan: Bilirubin which was 3.3 yesterday 1.7 today. This most likely represents his alcohol abuse, though we will need to consider other possibilities such as hepatitis. Serology has been ordered and is pending. (4) Alcohol withdrawal seizure with complication: Code(s): F10.239 - Alcohol dependence with withdrawal, unspecified; R56.9 - Unspecified convulsions Status: Acute Assessment and Plan: HisCIWA score is certainly at least in the 20s, although we cannot assess for auditory problems, headaches, nausea etcetera as he is sedated and unresponsive. (5) Acute renal failure: Qualifiers: Acute renal failure type: with acute tubular necrosis Qualified Code(s): N17.0 - Acute kidney failure with tubular necrosis Code(s): N17.9 - Acute kidney failure, unspecified Status: Acute Assessment and Plan: BUN was 52 on admission, 41 today with creatinine dropping from 3.3-1.7. We do not know what his baseline is. (6) Acute respiratory failure with hypoxia: Code(s): J96.01 - Acute respiratory failure with hypoxia Status: Acute Assessment and Plan: Because he was unresponsive emergency room he was intubated and has been intubated since admission. He did have a slightly elevated lactic acid level. Chest x-ray is negative for any acute disease. he is currently sedated with Precedex and fentanyl. Also receiving midazolam (7) Hyperammonemia: Code(s): E72.20 - Disorder of urea cycle metabolism, unspecified Status: Acute Assessment and Plan: Initial ammonia was over 50 but today it is normal. Consequently I do not think hepatic encephalopathy is a factor in his mental status issue. (8) Altered mental status: Code(s): R41.82 - Altered mental status, unspecified Status: Acute Assessment and Plan: We most likely are seeing alcohol withdrawal syndrome. We do not know what his status was over the last day or 2 because he had not been seen by family during that period of time. He was having seizures on admission and in transit to the hospital consistent with withdrawal syndrome. As far as we know there was no prior history of seizure disorder. obviously will not be able to assess his mental status completely until he is off the sedatives. GI Consult Note Consult date/time: 12/26/21 11:15 HPI: Marlon Cleveland is a 46 year old male who was brought to the emergency room yesterday when he was found unresponsive at home. He apparently had not been seen for a of couple of days. He was found lying on the floor incoherent. He has a history of alcohol abuse, drinking 1 pt of alcohol per day according to a note in the chart. The patient was having seizure activity on arrival he had to the hospital and was intubated. He has been started on sedative and also Keppra because of the seizures. Presumably he may be having some alcohol withdrawal syndrome. A CT scan of the brain showed an old infarct in the frontal lobe.
[2021-12-26 11:19] LABS: Troponin I 0.092 ng/mL (0.000-0.034)
[2021-12-26 12:30] LABS: Glucose Point of Care 98 mg/dl (65-105)
[2021-12-26 12:32] LABS: Hepatitis B Surface Antigen Negative (Negative)
[2021-12-26 12:37] LABS: HAV RESULT Negative (Negative); Hepatitis B Core IgM Result Negative (Negative)
[2021-12-26 12:49] LABS: Hepatitis C Virus Antibody Negative (Negative)
[2021-12-26] MEDS: chlordiazePOXIDE (*CRX) 25 MG CAPSULE 50 MG PO (13:20)
[2021-12-26] MEDS: PERFLUTREN LIPID MICROSPHERES 1.5 ML VIAL DILUTED TO 10 ML TOTAL VOLUME IV PUSH (14:05)
--- NOTE | 2021-12-26 14:54 | PM.IMPN ---
Progress Note: A&P Assessment and Plan (1) Acute respiratory failure with hypoxia: Code(s): J96.01 - Acute respiratory failure with hypoxia Status: Acute Assessment and Plan: Patient was intubated on 12/26/2021 due to encephalopathy/unresponsiveness, airway protection -chest x-ray and ABGs reviewed -currently on CMV mode of ventilation, peep of 5 and FiO2 of 25% -sedated with fentanyl and Versed infusion, daily sedation vacation 2, will maintain a RASS of 0--2 (2) Alcohol withdrawal seizure with complication: Code(s): F10.239 - Alcohol dependence with withdrawal, unspecified; R56.9 - Unspecified convulsions Status: Acute Assessment and Plan: Patient with tremors and seizures, could be related to alcohol withdrawal or previous stroke in the frontal region as evident on CT scan of the head on admission -patient currently on Keppra -will add librium and pt is on PRN ATIVAN continue thiamine and folic acid (3) Acute renal failure: Qualifiers: Acute renal failure type: with acute tubular necrosis Qualified Code(s): N17.0 - Acute kidney failure with tubular necrosis Code(s): N17.9 - Acute kidney failure, unspecified Status: Acute Assessment and Plan: Patient with acute kidney injury, likely related to hypovolemia, possible rhabdomyolysis, hypotension -patient received adequate amount of IV fluids in the ER and ICU -continue with maintenance IV fluids -urine output has been, creatinine is improving -continue to monitor urine output, renal function electrolytes (4) Acute hypernatremia: Code(s): E87.0 - Hyperosmolality and hypernatremia Status: Acute Assessment and Plan: Hyponatremia related to dehydration/hypovolemia -patient has been adequately volume repleted -will switch IV fluids to 0.45% saline -will obtain serial BMPs (5) Elevated troponin: Code(s): R77.8 - Other specified abnormalities of plasma proteins Status: Acute Assessment and Plan: Elevated troponin could be related to acute kidney injury -EKG showed T-wave inversion in anterior and lateral leads -will recheck EKG and troponin -unable to administer heparin or any anticoagulation as patient had blood in stools in the ER (6) Elevated liver enzymes: Code(s): R74.8 - Abnormal levels of other serum enzymes Status: Acute Assessment and Plan: Elevated LFTs could be related to hypovolemia, alcohol liver disease, gallbladder disease -will obtain right upper quadrant ultrasound and hepatitis panel -LFTs and bilirubin trending down (7) Shock: Code(s): R57.9 - Shock, unspecified Status: Acute Assessment and Plan: Patient was hypotensive post intubation and sedation -central line was inserted in the right femoral line early this morning started on Levophed at 1 mcg/min -patient has been started on Unasyn for possible aspiration pneumonitis -lactic acid is trending down which could have been related to seizure activity -blood and urine cultures have been obtained and pending (8) GI bleed: Code(s): K92.2 - Gastrointestinal hemorrhage, unspecified Status: Acute Assessment and Plan: ER nurse noted blood in stools which she was going to administer aspirin for the elevated troponins -chest pain was not administered -GI has been consulted -hemoglobin dropped from 15.5 to 10.7 this morning, could be dilutional or GI bleed -continue PPI we q.12 hours Subjective Date/time seen: 12/26/21 14:54 Interval history: 46yo male with hx of CVA and alcoholism found down. Exam Narrative: General: Well-built gentleman, in no acute distress HEENT: Pupils are equal and reactive, sclera is clear ETT in place Respiratory: Clear to auscultations bilaterally Cardiac: S1-S2 normal, regular rate and rhythm Abdomen: Soft, nontender, nondistended, hypoactive bowel sounds Extremities: No edema, warm Neuro: Patient is intubated, sedate
--- NOTE | 2021-12-26 16:03 | PM.TDS ---
Transfer Discharge Sum: Prov Provider Date of admission: 12/25/21 20:47 Primary care physician: UNKNOWN,DOCTOR Admitting clinician: Nicole Bar MD Consults: 12/26/21 Consult to Physician Routine Comment: Consulting Provider: Nicole Bar scalloper/ group to consult: Software Developer Reason for consultation: Alcohol withdrawal, respiratory failure Has provider been notified: Yes Consult to Physician Routine Comment: spoke with Dr. Navarro @[id number](,) Consulting Provider: Alexey Navarro scalloper/ group to consult: GI Reason for consultation: Bloody stools Has provider been notified: Yes Attending physician on discharge: Jose Osborn Discharging clinician: Jose Osborn Anticipated date of transfer: 12/26/21 Receiving physician/facility: [facility] DS: Admitting Diagnosis Discharge Date 12/26/21 Admitting Diagnosis Unresponsive DS: Discharge Diagnosis Discharge Diagnosis (1) Acute respiratory failure with hypoxia: Code(s): J96.01 - Acute respiratory failure with hypoxia Status: Acute (2) Alcohol withdrawal seizure with complication: Code(s): F10.239 - Alcohol dependence with withdrawal, unspecified; R56.9 - Unspecified convulsions Status: Acute (3) Acute renal failure: Qualifiers: Acute renal failure type: with acute tubular necrosis Qualified Code(s): N17.0 - Acute kidney failure with tubular necrosis Code(s): N17.9 - Acute kidney failure, unspecified Status: Acute (4) Acute hypernatremia: Code(s): E87.0 - Hyperosmolality and hypernatremia Status: Acute (5) Elevated troponin: Code(s): R77.8 - Other specified abnormalities of plasma proteins Status: Acute (6) Elevated liver enzymes: Code(s): R74.8 - Abnormal levels of other serum enzymes Status: Acute (7) Shock: Code(s): R57.9 - Shock, unspecified Status: Acute (8) GI bleed: Code(s): K92.2 - Gastrointestinal hemorrhage, unspecified Status: Acute Transfer Discharge Sum: Med Medications Active and Home Medications: Home Medications No Home Medications 12/25/21 [History Confirmed 12/25/21] Active Medications Chlordiazepoxide HCl (Chlordiazepoxide (*Crx) 25 Mg Capsule) 50 mg PO Q6HR MICHAEL Last Admin: 12/26/21 13:31 Dose: Not Given Documented by: Folic Acid (Folic Acid 1 Mg/0.2 Ml Inj) 1 mg IV PUSH QAM MICHAEL Last Admin: 12/26/21 09:25 Dose: 1 mg Documented by: Multivitamins 5 ml/Multivitamins 5 ml/ Sodium Chloride 1,010 mls @ 100 mls/hr IV CONT .Q10H6M ONE Last Infusion: 12/25/21 23:10 Dose: Infused Documented by: Dexmedetomidine HCl (Precedex 400 Mcg/100 Ml) 400 mcg in 100 mls @ 0 mls/hr IV CONT .Q0M MICHAEL; Protocol Last Titration: 12/26/21 00:18 Dose: 0 mcg/kg/hr, 0 mls/hr Documented by: Ampicillin Sodium/Sulbactam Sodium (Unasyn 3 Gm/Ns 100 Ml) 3 gm in 100 mls @ 200 mls/hr IVPB Q6H MICHAEL Last Admin: 12/26/21 15:47 Dose: 200 mls/hr Documented by: Levetiracetam (Keppra Iv) 1,000 mg in 100 mls @ 400 mls/hr IVPB Q12HR MICHAEL Last Infusion: 12/26/21 09:40 Dose: Infused Documented by: Norepinephrine Bitartrate (Levophed 8 Mg/D5w 250 Ml) 8 mg in 250 mls @ 0 mls/hr IV CONT .Q0M MICHAEL; Protocol Last Titration: 12/26/21 15:58 Dose: 0 mcg/min, 0 mls/hr Documented by: Fentanyl Citrate (Fentanyl 2,500 Mcg/Ns 250 Ml) 2,500 mcg in 250 mls @ 7.5 mls/hr IV CONT .[id number] MICHAEL; Protocol Last Titration: 12/26/21 04:09 Dose: 75 mcg/hr, 7.5 mls/hr Documented by: Midazolam HCl (Versed 100 Mg/Ns 100 Ml) 100 mg in 100 mls @ 3 mls/hr IV CONT .[id number] MICHAEL; Protocol Last Titration: 12/26/21 04:08 Dose: 3 mg/hr, 3 mls/hr Documented by: Sodium Chloride (Sodium Chloride 0.45%) 1,000 mls @ 100 mls/hr IV CONT .Q10H MICHAEL Last Admin: 12/26/21 09:41 Dose: 100 mls/hr Documented by: Vancomycin HCl (Vancomycin 1,000 Mg/D5w 250 Ml) 1,000 mg in 250 mls @ 250 mls/hr IVPB Q24H MICHAEL La
[2021-12-26] MEDS: LORazepam INJ (*CRX) 2 MG/ML VIAL IV PUSH (16:51)
--- NOTE | 2021-12-26 17:04 | PC.NURSE ---
Report given to hoseman John, at [facility]'s SICU. Patient transferred to SICU from ICU-11 via EMS at 1705 on 12/26/2021.
== END 2021-12-26 17:05 | disposition short-term general hospital (02) | DRG 871 ==
LOC: ANHED 18:57 → ANHICU 22:58
PROVIDERS: Emergency Medicine; Internal Medicine; Admitting Provider Internal Medicine; Emergency Provider Emergency Medicine; Visit Provider Internal Medicine
DX: A41.9 Sepsis, unspecified organism (principal); R65.21 Severe sepsis with septic shock; N17.0 Acute kidney failure with tubular necrosis; J96.01 Acute respiratory failure with hypoxia; F10.239 Alcohol dependence with withdrawal, unspecified; E87.0 Hyperosmolality and hypernatremia; E87.2 Acidosis; E72.20 Disorder of urea cycle metabolism, unspecified; K92.2 Gastrointestinal hemorrhage, unspecified; Z20.822 Contact with and (suspected) exposure to COVID-19; E80.6 Other disorders of bilirubin metabolism; R77.8 Other specified abnormalities of plasma proteins; R74.8 Abnormal levels of other serum enzymes; E86.1 Hypovolemia; Z86.73 Personal history of transient ischemic attack (TIA), and cerebral infarction without residual deficits; R56.9 Unspecified convulsions
CPT/HCPCS: 36415; 36600; 70450; 71045; 72125; 76705; 80048; 80053; 80074; 80307; 81001; 82140; 82375; 82550; 82607; 82746; 82805; 82948; 83050; 83605; 83735; 84100; 84443; 84484; 85025; 85610; 85730; 87040; 87086; 87147; 87181; 87186; 93005; 94002; 94003; 96361; 96374; 96375; 96376; 99285; A9270; C1751; C8929; C9113; C9803; J0295; J1953; J2060; J2250; J2704; J3010; J3360; J3370; J3411; J7030; J7120; Q9957; U0003; U0005

== ENCOUNTER 2022-03-21 15:07 | Inpatient (IN) | payer OTHER, SELFPAY ==
[2022-03-21] VITALS (12 sets, daily range): BP systolic 106–136; BP diastolic 73–89; PULSE 85–103; RESP 15–23; TEMP 36.6–37.1; O2SAT 98–100; BMI 21.2
--- NOTE | ~2022-03-21 | CT_ITS ---
EXAMINATION: CT cervical spine wo con DATE: 03/21/2022 17:26 INDICATION: Neck pain after fall TECHNIQUE: Computed tomography (CT) of the cervical spine was performed without intravenous contrast. The dose-length product was 400 mGy-cm. Automated exposure control and iterative reconstruction tech [employer] were employed. COMPARISON: CT dated 12/25/2021 FINDINGS: Straightening of cervical lordosis, likely due to patient positioning or muscle spasm. Ther e is degenerative disc disease at C5-6, unchanged from prior study. Odontoid process within normal li mits. Vertebral body heights are maintained. Craniovertebral junction within normal limits. There are uncinate degenerative changes at C4-5 and C5-6. Lung apices are normal. IMPRESSION: 1. No acute abnormality of the cervical spine. 2: Mild cervical spondylosis. Reviewed, dictated and finalized at location A.
--- NOTE | ~2022-03-21 | XR_ITS ---
XR chest 1V portable DATE: 03/21/2022 16:00 INDICATION: Weakness TECHNIQUE: Portable upright AP chest on 03/21/2022 at 1556 hours COMPARISON: 12/26/2021 portable AP chest FINDINGS: Normal heart size. No hilar or mediastinal enlargement. The lungs are clear of infiltrate o r consolidation. No pleural effusion or pulmonary vascular congestion or pneumothorax. Subacute healing virtually nondisplaced posterolateral right 10th rib fracture. IMPRESSION: Healing posterior lateral nondisplaced right 10th rib fracture No active cardiopulmonary disease Reviewed, dictated and finalized at location B.
--- NOTE | ~2022-03-21 | CT_ITS ---
EXAMINATION: CT abdomen pelvis w con DATE: 03/21/2022 17:26 INDICATION: Status post fall. Headache. Neck pain. Left abdominal hematoma. Dysuria. TECHNIQUE: Computed tomography (CT) of the abdomen and pelvis was performed with 100 cc Omnipaque 350 intravenous contrast. The dose-length product was 555.45 mGy-cm. Automated exposure control and iter ative reconstruction technique were employed. COMPARISON: None. FINDINGS: There is rounded atelectasis in the right lower lobe. Heart size normal. No significant ple ural or pericardial effusion. No significant vascular abnormality. No lymphadenopathy. Fatty infiltration of the liver. The spleen, pancreas, adrenal glands and kidneys are unremarkable. N onobstructive bowel pattern. Bladder is decompressed limiting evaluation for bladder wall thickening. Nonobstructive bowel pattern. No abnormal pelvic masses or fluid collections. No free air or free fl uid. There is a healed/healing right 10th rib fracture. IMPRESSION: 1. No acute abdominal abnormality. 2: Healed/healing right 10th rib fracture with nearby rounded atelectasis of the lower lobe. 3: Hepatic steatosis. Reviewed, dictated and finalized at location A. IMPRESSION: 1. No acute abdominal abnormality. 2: Healed/healing right 10th rib fracture with nearby rounded atelectasis of t he lower lobe. 3: Hepatic steatosis.
--- NOTE | ~2022-03-21 | CT_ITS ---
EXAMINATION: CT brain wo con DATE: 03/21/2022 17:26 INDICATION: Status post fall. Patient unresponsive. TECHNIQUE: Computed tomography (CT) of the head was performed without intravenous contrast. The dose- length product was 605.33 mGy-cm. Automated exposure control and iterative reconstruction technique w ere employed. COMPARISON: CT dated 12/25/2021 FINDINGS: There is a chronic left frontal lobe infarction. Generalized atrophy. There are scattered m ild periventricular and subcortical white matter changes, most likely related to small vessel ischemi c disease (microangiopathy). No ventriculomegaly or midline shift. Basilar cisterns are patent. Paran anushka sinuses and mastoids are pneumatized. No depressed skull fractures. Midline sagittal images are unremarkable. No acute intracranial hemorrhage, infarction, mass or mass effect. IMPRESSION: 1. No acute intracranial abnormality. 2: Chronic left frontal lobe infarction. 3: Chronic age-related findings. Reviewed, dictated and finalized at location A.
[2022-03-21 15:17] LABS: Glucose Point of Care 167 mg/dl (65-105)
--- NOTE | 2022-03-21 15:17 | ECG_ITS ---
Measurements Intervals [place] Rate: 88 P: 21 MI: 120 QRS: 44 QRSD: 96 T: 20 QT: 380 QTc: 462 Interpretive Statements SINUS RHYTHM BASELINE ARTIFACT NONSPECIFIC ST ABNORMALITY HIGH LATERAL LEADS CANNOT RULE OUT INFERIOR INFARCTION AGE INDETERMINATE ABNORMAL ECG COMPARED TO ECG 12/26/2021 10:32:02 T-WAVE ABNORMALITY ANTEROLATERAL LEADS HAVE IMPROVED SIGNIFICANTLY Electronically Signed On 03-22-2022 13:25:10 CDT by Dino Santoyo M.D.
--- NOTE | 2022-03-21 15:28 | ED.GENADULT ---
HPI - General Adult General Chief complaint: Urogenital-Male Stated complaint: BURNING WITH URINATING, LAYING ON THE FLOOR X DAYS Time Seen by Provider: 03/21/22 15:09 Source: patient, EMS, RN notes reviewed and old records reviewed Mode of arrival: EMS History of Present Illness HPI narrative: This is a 47 year old male with history of alcohol abuse who presents via EMS for evaluation of being stuck in between bed and wall since Thursday. Patient lives with his mother and it has been reported that she was aware of him being stuck. Patient states he thought he was going to be able to get up so he did not ask for his mother to call for help. Patient reports he hit his head but he denies headache or LOC. She has mild neck pain. He denies chest pain, rib pain, abdominal pain or back pain. Nursing staff notes bruising to patient's back, left forearm. He states he only takes Propranolol and he has not take today. He also states he has not eaten since Thursday, but his mother did offer to feed him. PAtient's last drink was yesterday and it was vodka. Related Data Home Medications Medication Instructions Recorded Confirmed propranolol 20 mg tablet 20 mg 2XD 03/21/22 03/21/22 Allergies Allergy/AdvReac Type Severity Reaction Status Date / Time No Known Allergies Allergy Verified 03/21/22 17:46 Review of Systems Review of Systems: All systems reviewed & are unremarkable except as noted in HPI and below Constitutional: Constitutional: Denies chills, Denies fatigue and Denies fever(s) Cardiovascular: Cardiovascular: Denies chest pain Respiratory: Respiratory: Denies chest congestion, Denies cough and Denies dyspnea Gastrointestinal: Gastrointestinal: Denies abdominal pain, Denies bloating and Denies constipation Genitourinary: Genitourinary: Denies hematuria and Denies oliguria Musculoskeletal: Musculoskeletal: Denies back pain and Denies myalgias Neurologic: Denies headache(s) [facility] Past Medical History Medical History (Updated 03/21/22 @ 20:36 by Shikha Briones PA-C) Alcohol withdrawal seizure (12/2021) Alcoholism Cerebrovascular accident Evidence of old infarction a left frontal lobe on CT scan taken 12/25/2021. Cervical spondylosis C5-C6 Surgical History Surgical History Surgical history unknown Family History Family History Other Unknown family medical history Social History Social History Smoking status: Unknown if ever smoked Alcohol intake: current Spiritual care concerns: No Exam Const: General: no acute distress and alert; No diaphoretic Orientation/consciousness: patient oriented x3 HENMT: Head: contusion (scab/abrasion to left forehead) Face and sinus: normal facial exam Mouth: Yes Normal oral and palatal mucosa present, Yes lip normal and Yes moist mucous membranes Teeth and gingiva: dentition normal Throat: posterior oropharynx normal Eyes: Conjunctivae: conjunctivae normal Pupils: Equal, round and reactive pupils present EOM: EOMs intact bilaterally Neck: Neck: normal visual inspection Chest: Chest palpation & inspection: normal inspection of the chest Resp: Effort & Inspection: normal respiratory effort Auscultation: clear to auscultation bilaterally Cardio: Rate: regular rate Rhythm: regular rhythm Heart sounds: no murmurs GI: GI Palp: Yes Soft to palpation, No Tenderness to palpation present (GI) and No Guarding due to palpation present (GI) Auscultation: normal bowel sounds Other: bruising to left lower abdomen Back/Spine/Pelvis: Other: bruising to left back Skin: Wounds: wounds noted (abrasion to left forehead) Other: bruising to his left back Neuro: General: patient oriented x3, moves all extremities and CN's II-XI intact bilaterally Other: tremouslous Psych:
[2022-03-21 15:37] LABS: Basophils Absolute Auto 0.1 K/mm3 (0.0-0.1); Basophils Percent Auto 0.7 % (0.2-1.2); Eosinophils Percent Auto 0.1 % (0-4.4); Hematocrit 36.5 % (42.0-52.0); Hemoglobin 11.6 g/dL (14.0-18.0); Immature Granulocyte Absolute 0.03 K/mm3 (0.00-0.031); Immature Granulocyte Percent A 0.4 % (0-0.5); Lymphocytes Absolute Auto 0.92 K/mm3 (0.9-3.2); Lymphocytes Percent Auto 13.6 % (18.3-44.2); Mean Corpuscular HGB Conc 31.8 g/dl (32-36); Mean Corpuscular Hemoglobin 31.9 pg (26-34); Mean Corpuscular Volume 100.3 fl (80-100); Mean Platelet Volume 10.3 fl (7.4-10.4); Monocytes Absolute Auto 0.9 K/mm3 (0.1-0.6); Monocytes Percent Auto 13.7 % (2.6-8.5); Neutrophils Absolute Auto 4.8 K/mm3 (1.3-6.7); Neutrophils Percent Auto 71.5 % (45.5-73.1); Platelet Count Result 122 k/mm3 (150-375); Red Blood Count 3.64 M/mm3 (4.6-6.20); Red Cell Distribution Width 17.3 % (11.5-14.5); White Blood Count 6.8 K/mm3 (4.5-10.0)
[2022-03-21 15:46] LABS: INR 1.1; Partial Thromboplastin Time 27.5 SECONDS (22.3-36.8); Prothrombin Time 14.1 Seconds (11.1-14.7)
[2022-03-21 15:51] LABS: Ammonia 44 umol/L (9-30)
[2022-03-21 15:51] LABS: Ethanol < 10 mg/dL (<10)
[2022-03-21] MEDS: LACTATED RINGERS 1,000 ML 999 ML IV CONT (15:51)
[2022-03-21 16:02] LABS: SARS-CoV-2 RNA PCR Negative
[2022-03-21] MEDS: THIAMINE HCL INJ 100 MG, FOLIC ACID INJ 1 MG, MULTIVITAMINS-12 INJ VIAL 1 5 ML, MULTIVI... IV CONT (16:06)
--- NOTE | 2022-03-21 16:07 | PC.NURSE ---
Pt unable to provide urine sample at this time.
[2022-03-21 16:08] LABS: Alanine Aminotransferase 65 U/L (6-50); Albumin Level 5.1 g/dL (3.5-5.1); Alkaline Phosphatase 145 U/L (38-126); Anion Gap 25 mmol/L (8-16); Aspartate Amino Transferase 84 U/L (17-59); Bilirubin,Total 1.4 mg/dL (0.2-1.3); Blood Urea Nitrogen 19 mg/dL (9-20); Calcium 9.8 mg/dL (8.4-10.2); Carbon Dioxide 11 mmol/L (22-30); Chloride 104 mmol/L (98-107); Creatine Kinase 457 U/L (55-170); Estimated CRCL calculation 82 ml/min; Estimated Glomerular Filt Rate > 60; Glucose 169 mg/dL (65-110); Potassium 4.4 mmol/L (3.4-5.0); Sodium 140 mmol/L (137-145)
[2022-03-21 16:30] LABS: Alveolar/Arterial O2 Gradient 32.8 mmHg; Base Excess ABG -8.5 mEq/l (+/-2.0); Fractional Inspired Oxygen 21 %; HCO3 ABG 14.8 mEq/l (22.0-26.0); Methemoglobin ABG 0.1 %THb (0-1.5); Oxygen Content ABG 16.8 %vol (16.0-22.0); Oxygen Saturation ABG 96.7 % (95.0-100.0); Oxyhemoglobin 95.7 % THb (90.0-100.0); PCO2 ABG 25.2 mmHg (35.0-45.0); PO2 ABG 86.8 mmHg (80.0-100.0); PO2 FiO2 Ratio Arterial Blood 4.13 %; Reduced Hemoglobin 4.2 %THb (0-5.0); Site Drawn LEFT BRACHIAL; Total Hemoglobin 12.4 g/dL (12.0-18.0); pH ABG 7.387 (7.350-7.450)
[2022-03-21 16:31] LABS: Device ROOM AIR
--- NOTE | 2022-03-21 16:49 | PC.NURSE ---
Pt unable to provide urine sample at this time.
[2022-03-21 17:03] LABS: Lactic Acid Reflex 1.7 mmol/L (0.7-2.0)
[2022-03-21 17:13] LABS: Appearance Urine Clear (Clear); Bilirubin Urine 3+ (Negative); Blood Urine 1+ (Negative); Color Urine Yellow (Yellow); Glucose Urine UA Negative (Negative); Ketones Urine 4+ mg/dL (Negative); Leukocyte Esterase Ur Negative LEU/UL (Negative); Nitrate Urine Negative (Negative); Protein Urine 3+ mg/dL (Negative); Specific Grav Ur >= 1.030 (1.001-1.035)
[2022-03-21 17:17] LABS: Hyaline Casts Urine 50+ /lpf; Mucus Urine Rare /lpf; RBC Urine 0-2 /hpf (0-2); WBC Urine 0-3 /hpf
[2022-03-21 17:21] LABS: Add Urine Microscopic? YES
[2022-03-21 17:26] LABS: Amphetamine Screen Urine Negative (Negative); Barbiturate Screen Urine Negative (Negative); Benzodiazepines Screen Urine Negative (Negative); Cannabinoid Screen Urine Negative (Negative); Cocaine Screen Urine Negative (Negative); Methadone Screen Urine Negative (Negative); Opiate Screen Urine Negative (Negative); Phencyclidine Screen Urine Negative (Negative)
[2022-03-21] MEDS: SODIUM CHLORIDE 0.9% IV 1,000 ML 999 ML IV CONT (17:28)
[2022-03-21] MEDS: LORazepam INJ (*CRX) 2 MG/ML VIAL IV PUSH ×2 (18:48→19:54)
--- NOTE | 2022-03-21 19:15 | PM.IMHP ---
H&P: HPI History of Present Illness Date/Time: 03/21/22 19:15 Chief Complaint: Fall on Thursday. Narrative: This is a 47-year-old male with history of alcoholism, alcohol withdrawal seizures, and stroke who presented to the emergency department via EMS from home for evaluation after a fall which he reportedly sustained on Thursday. It is difficult to obtain a proper history from the patient as he seems to be suffering from hallucinations and his answers are at times bizarre. As such majority of the following is obtained via a review of his electronic medical records. According to the triage note, the patient fell out of bed on Thursday and he was apparently stuck in between the bed in wall since that time. He was not able to get himself up for unclear reasons and his mother, with whom he shares a home, did not call for help until today as he was still lying on the floor. On EMS arrival his glucose was 48 for which she was given oral glucose with improvement. He does not really remember the fall and he does not think he sustained any head trauma or loss of consciousness however he has some abrasions and contusions noted on the forehead and scalp. He has not really had much to eat or drink since Thursday aside from a drink of vodka here and there. At the time my evaluation he has no specific complaints any specifically denies headache, fever, chills, sweats, cold and flu symptoms, chest pain, shortness of breath, nausea, vomiting, abdominal pain, diarrhea, and dysuria. He does not feel particularly anxious though he is noted to have tremors of his hands. Review of Systems Review of Systems: Twelve systems were reviewed and are negative except for as per HPI. Accuracy of his history is questionable however given the bizarre answers that he gives at times. [facility] Past Medical History Medical History (Updated 03/21/22 @ 20:50 by Shikha Briones PA-C) Alcohol withdrawal seizure (12/2021) Alcoholism Cerebrovascular accident Evidence of old infarction a left frontal lobe on CT scan taken 12/25/2021. Cervical spondylosis C5-C6 Surgical History Surgical History Surgical history unknown Family History Family History Other Unknown family medical history Social History Social History (Updated 03/21/22 @ 20:43 by Shikha Briones PA-C) Social History: Surrogate medical decision maker: Marichuy Cleveland, . Code status: Full code. Smoking status: Unknown if ever smoked Alcohol intake: current Alcohol use details: Patient unable to qualify how much alcohol he consumes a day. Additional living arrangements comments: The patient lives with his mother in [place]. Spiritual care concerns: No Meds Home Medications and Allergies Home Medications Medication Instructions Recorded Confirmed Type propranolol 20 mg tablet 20 mg 2XD 03/21/22 03/21/22 History Allergies Allergy/AdvReac Type Severity Reaction Status Date / Time No Known Allergies Allergy Verified 03/21/22 17:46 Vital Signs Vital Signs - 24 hr 03/21/22 15:07 03/21/22 16:45 03/21/22 17:31 Temperature 98.2 F Pulse Rate 97 85 91 Respiratory Rate 15 17 23 H Blood Pressure 112/82 108/80 110/75 Pulse Oximetry 100 100 100 Exam Narrative: General: Moderately ill-appearing male sitting up in bed. Weight: 63 kg. BMI: 23.8. HEENT: Abrasion on the left forehead. Contusion on the right frontoparietal region. PERRL, EOMI. Conjunctiva are injected but anicteric. Tacky mucous membranes. Oropharynx not visualized. Neck: Supple. No nuchal rigidity. Respiratory: Lungs are clear to auscultation bilaterally. Cardiovascular: Regular rate and rhythm with S1-S2. Gastrointestinal: Abdomen is soft, nontender, and nondistended with positive bowel sounds. No organomegaly. Skin: Warm and dry. Piloerection of the upper extremities noted. n
[2022-03-21] MEDS: chlordiazePOXIDE (*CRX) 25 MG CAPSULE 50 MG PO (21:09)
[2022-03-21] MEDS: DEXTROSE 5%/0.9% SOD CHL 1,000 ML 100 ML IV CONT (21:45)
--- NOTE | 2022-03-21 22:33 | PC.NURSE ---
This patient, Marlon Cleveland, was admitted to IMU Room 205-02. Patient unable to be oriented to hospital policies and general routines including ID bracelet, bed and alarms, visiting hours, pain management, procedures, bathroom and other care routines, personal items, smoking policy, room service/diet, and visiting hours due to altered mental status. Unable to reach family by phone. Number not in service.
[2022-03-21 23:03] LABS: Anion Gap 14 mmol/L (8-16); Blood Urea Nitrogen 15 mg/dL (9-20); Calcium 8.8 mg/dL (8.4-10.2); Carbon Dioxide 19 mmol/L (22-30); Chloride 104 mmol/L (98-107); Creatine Kinase 347 U/L (55-170); Estimated CRCL calculation 100 ml/min; Estimated Glomerular Filt Rate > 60; Glucose 194 mg/dL (65-110); Magnesium 2.3 mg/dL (1.6-2.3); Potassium 3.9 mmol/L (3.4-5.0); Sodium 137 mmol/L (137-145)
[2022-03-21 23:13] LABS: Iron 78 ug/dL (49-181)
[2022-03-21 23:23] LABS: Percent Iron Saturation 27 % (20-50)
[2022-03-21 23:30] LABS: Glucose Point of Care 184 mg/dl (65-105)
[2022-03-22] VITALS (13 sets, daily range): BP systolic 114–140; BP diastolic 82–99; PULSE 73–115; RESP 16–20; TEMP 36.4–37.2; O2SAT 98–100
[2022-03-22 00:25] LABS: Folic Acid > 20.0 ng/mL (2.76->20)
[2022-03-22 04:56] LABS: Basophils Absolute Auto 0.1 K/mm3 (0.0-0.1); Basophils Percent Auto 0.9 % (0.2-1.2); Eosinophils Absolute Auto 0.1 K/mm3 (0-0.3); Eosinophils Percent Auto 1.7 % (0-4.4); Hematocrit 33.5 % (42.0-52.0); Hemoglobin 10.8 g/dL (14.0-18.0); Immature Granulocyte Absolute 0.02 K/mm3 (0.00-0.031); Immature Granulocyte Percent A 0.4 % (0-0.5); Immature Platelet Fraction Pct 5.8 % (0.9-11.2); Lymphocytes Absolute Auto 1.23 K/mm3 (0.9-3.2); Lymphocytes Percent Auto 22.7 % (18.3-44.2); Mean Corpuscular HGB Conc 32.2 g/dl (32-36); Mean Corpuscular Hemoglobin 32.2 pg (26-34); Mean Platelet Volume 10.4 fl (7.4-10.4); Monocytes Absolute Auto 0.8 K/mm3 (0.1-0.6); Monocytes Percent Auto 14.4 % (2.6-8.5); Neutrophils Absolute Auto 3.2 K/mm3 (1.3-6.7); Neutrophils Percent Auto 59.9 % (45.5-73.1); Platelet Count Result 83 k/mm3 (150-375); Red Blood Count 3.35 M/mm3 (4.6-6.20); Red Cell Distribution Width 17.5 % (11.5-14.5); White Blood Count 5.4 K/mm3 (4.5-10.0)
[2022-03-22 05:08] LABS: Ammonia < 9 umol/L (9-30)
[2022-03-22 05:10] LABS: Alanine Aminotransferase 58 U/L (6-50); Albumin Level 4.2 g/dL (3.5-5.1); Alkaline Phosphatase 125 U/L (38-126); Anion Gap 11 mmol/L (8-16); Aspartate Amino Transferase 90 U/L (17-59); Blood Urea Nitrogen 12 mg/dL (9-20); Calcium 8.7 mg/dL (8.4-10.2); Carbon Dioxide 24 mmol/L (22-30); Chloride 106 mmol/L (98-107); Creatine Kinase 319 U/L (55-170); Estimated CRCL calculation 100 ml/min; Estimated Glomerular Filt Rate > 60; Glucose 155 mg/dL (65-110); Potassium 3.6 mmol/L (3.4-5.0); Sodium 141 mmol/L (137-145)
[2022-03-22] MEDS: chlordiazePOXIDE (*CRX) 25 MG CAPSULE 50 MG PO ×3 (05:23→17:54)
[2022-03-22] MEDS: FOLIC ACID 1 MG/0.2 ML INJ IV PUSH (09:29)
[2022-03-22] MEDS: THIAMINE HCL 200 MG/2 ML VIAL 100 MG IV PUSH (09:29)
--- NOTE | 2022-03-22 11:45 | PM.IMPN ---
Progress Note: A&P Assessment and Plan (1) Fall: Code(s): W19.XXXA - Unspecified fall, initial encounter Status: Acute Assessment and Plan: Patient reportedly fell out of bed on Thursday and he remained on the floor until today. He does not recall how he ended up on the floor. He does have evidence of contusions on exam though luckily he sustained no acute injuries. Initiate fall precautions. (2) Alcohol withdrawal: Code(s): F10.939 - Alcohol use, unspecified with withdrawal, unspecified Status: Acute Assessment and Plan: Patient currently has tremors, piloerection, and evidence of hallucinations. He needs aggressive treatment to avoid progression of his alcohol withdrawal symptoms given history of alcohol withdrawal seizures requiring intubation several months ago. Continue Librium and CIWA protocol (3) Alcoholic ketoacidosis: Code(s): E87.2 - Acidosis Status: Acute Assessment and Plan: Monitor (4) Dehydration: Code(s): E86.0 - Dehydration Status: Acute Assessment and Plan: Plan is as detailed above. (5) Macrocytic anemia: Code(s): D53.9 - Nutritional anemia, unspecified Status: Acute Assessment and Plan: Hemoglobin and hematocrit are stable on review of previous labs. Check B12, folates, and iron studies. (6) Thrombocytopenia: Code(s): D69.6 - Thrombocytopenia, unspecified Status: Acute Assessment and Plan: Likely related to alcoholism. This is mild and stable on review of previous labs. (7) Transaminitis: Code(s): R74.01 - Elevation of levels of liver transaminase levels Status: Acute Assessment and Plan: Likely related to alcoholic liver disease. Monitor. (8) Elevated CK: Code(s): R74.8 - Abnormal levels of other serum enzymes Status: Acute Assessment and Plan: While patient has reportedly been on the floor since Thursday, his CK not high enough to diagnosed rhabdomyolysis. Continue IV fluids and repeat in a.m. (9) Hyperammonemia: Code(s): E72.20 - Disorder of urea cycle metabolism, unspecified Status: Acute Assessment and Plan: Ammonia is mildly elevated as it was when he was admitted in December. Given his profound dehydration I am hesitant to start lactulose as he is profoundly dry. Will repeat ammonia in a.m. and consider treatment depending on his mentation thereafter. Subjective Date/time seen: 03/22/22 11:45 No complaints. Exam Narrative: General: Moderately ill-appearing male sitting up in bed. Weight: 63 kg. BMI: 23.8. HEENT: Abrasion on the left forehead. Contusion on the right frontoparietal region. PERRL, EOMI. Conjunctiva are injected but anicteric. Tacky mucous membranes. Oropharynx not visualized. Neck: Supple. No nuchal rigidity. Respiratory: Lungs are clear to auscultation bilaterally. Cardiovascular: Regular rate and rhythm with S1-S2. Gastrointestinal: Abdomen is soft, nontender, and nondistended with positive bowel sounds. No organomegaly. Skin: Warm and dry. Piloerection of the upper extremities noted. noted to the back, left arm, left trunk, and left knee. Extremities: No cyanosis, clubbing, or edema. Radial and pedal pulses intact. Neurological: Alert and oriented x4 at the time of my evaluation. Cranial nerves 2-12 are grossly intact. Speech is somewhat mumbled but understandable. No facial asymmetry. He moves upper and lower extremities but does not participate in the neurologic exam. Fine tremors of the hands. Psychiatric: Poor eye contact. Depressed mood and flat affect. Suspect that he is having visual hallucinations given his bizarre answers however he denies such. Objective Data Vital Signs Vital Signs: Vital Signs - 24 hr 03/21/22 15:07 03/21/22 16:45 03/21/22 17:31 Temperature 98.2 F Pulse Rate 97 85 91 Respiratory Rate 15 17 23 H Blood Pressure 112/82 108/80 110/75 Pulse O
[2022-03-22 12:07] LABS: Glucose Point of Care 177 mg/dl (65-105)
[2022-03-22] MEDS: DEXTROSE 5%/0.9% SOD CHL 1,000 ML 75 ML IV CONT (13:50)
[2022-03-22 23:08] LABS: Glucose Point of Care 142 mg/dl (65-105)
[2022-03-23] VITALS (12 sets, daily range): BP systolic 111–157; BP diastolic 80–100; PULSE 72–124; RESP 16–99; TEMP 36.4–37.7; O2SAT 98–100
[2022-03-23] MEDS: chlordiazePOXIDE (*CRX) 25 MG CAPSULE 50 MG PO ×4 (00:19→18:32)
[2022-03-23] MEDS: DEXTROSE 5%/0.9% SOD CHL 1,000 ML 75 ML IV CONT ×2 (00:19→13:29)
[2022-03-23 06:46] LABS: Glucose Point of Care 133 mg/dl (65-105)
[2022-03-23 07:00] LABS: Hematocrit 33.2 % (42.0-52.0); Hemoglobin 10.7 g/dL (14.0-18.0); Immature Platelet Fraction Pct 5.8 % (0.9-11.2); Mean Corpuscular HGB Conc 32.2 g/dl (32-36); Mean Corpuscular Hemoglobin 32.3 pg (26-34); Mean Corpuscular Volume 100.3 fl (80-100); Mean Platelet Volume 10.3 fl (7.4-10.4); Platelet Count Result 90 k/mm3 (150-375); Red Blood Count 3.31 M/mm3 (4.6-6.20); Red Cell Distribution Width 17.5 % (11.5-14.5); White Blood Count 3.4 K/mm3 (4.5-10.0)
[2022-03-23 07:08] LABS: Lactic Acid Reflex 1.4 mmol/L (0.7-2.0)
[2022-03-23 07:09] LABS: Anion Gap 9 mmol/L (8-16); Blood Urea Nitrogen 10 mg/dL (9-20); Calcium 8.4 mg/dL (8.4-10.2); Carbon Dioxide 26 mmol/L (22-30); Chloride 107 mmol/L (98-107); Creatine Kinase 130 U/L (55-170); Estimated CRCL calculation 100 ml/min; Estimated Glomerular Filt Rate > 60; Glucose 134 mg/dL (65-110); Potassium 3.2 mmol/L (3.4-5.0); Sodium 142 mmol/L (137-145)
[2022-03-23] MEDS: FOLIC ACID 1 MG/0.2 ML INJ IV PUSH (08:46)
[2022-03-23] MEDS: THIAMINE HCL 200 MG/2 ML VIAL 100 MG IV PUSH (08:46)
[2022-03-23] MEDS: POTASSIUM CHLORIDE 20 MEQ PACKET (FOR LIQUID) 40 MEQ PO (10:36)
--- NOTE | 2022-03-23 11:01 | PM.IMPN ---
Progress Note: A&P Assessment and Plan (1) Fall: Code(s): W19.XXXA - Unspecified fall, initial encounter Status: Acute Assessment and Plan: Patient reportedly fell out of bed on Thursday and he remained on the floor until today. He does not recall how he ended up on the floor. He does have evidence of contusions on exam though luckily he sustained no acute injuries. Initiate fall precautions. (2) Alcohol withdrawal: Code(s): F10.939 - Alcohol use, unspecified with withdrawal, unspecified Status: Acute Assessment and Plan: Patient currently has tremors, piloerection, and evidence of hallucinations. He needs aggressive treatment to avoid progression of his alcohol withdrawal symptoms given history of alcohol withdrawal seizures requiring intubation several months ago. Continue Librium and CIWA protocol (3) Alcoholic ketoacidosis: Code(s): E87.2 - Acidosis Status: Acute Assessment and Plan: Monitor (4) Dehydration: Code(s): E86.0 - Dehydration Status: Acute Assessment and Plan: Plan is as detailed above. (5) Macrocytic anemia: Code(s): D53.9 - Nutritional anemia, unspecified Status: Acute Assessment and Plan: Hemoglobin and hematocrit are stable on review of previous labs. Check B12, folates, and iron studies. (6) Thrombocytopenia: Code(s): D69.6 - Thrombocytopenia, unspecified Status: Acute Assessment and Plan: Likely related to alcoholism. This is mild and stable on review of previous labs. (7) Transaminitis: Code(s): R74.01 - Elevation of levels of liver transaminase levels Status: Acute Assessment and Plan: Likely related to alcoholic liver disease. Monitor. (8) Elevated CK: Code(s): R74.8 - Abnormal levels of other serum enzymes Status: Acute Assessment and Plan: While patient has reportedly been on the floor since Thursday, his CK not high enough to diagnosed rhabdomyolysis. Continue IV fluids and repeat in a.m. (9) Hyperammonemia: Code(s): E72.20 - Disorder of urea cycle metabolism, unspecified Status: Acute Assessment and Plan: Ammonia is mildly elevated as it was when he was admitted in December. Given his profound dehydration I am hesitant to start lactulose as he is profoundly dry. Will repeat ammonia in a.m. and consider treatment depending on his mentation thereafter. Subjective Date/time seen: 03/23/22 11:01 Appears less tremulous today. No new complaints Exam Narrative: General: Moderately ill-appearing male sitting up in bed. Weight: 63 kg. BMI: 23.8. HEENT: Abrasion on the left forehead. Contusion on the right frontoparietal region. PERRL, EOMI. Conjunctiva are injected but anicteric. Tacky mucous membranes. Oropharynx not visualized. Neck: Supple. No nuchal rigidity. Respiratory: Lungs are clear to auscultation bilaterally. Cardiovascular: Regular rate and rhythm with S1-S2. Gastrointestinal: Abdomen is soft, nontender, and nondistended with positive bowel sounds. No organomegaly. Skin: Warm and dry. Piloerection of the upper extremities noted. noted to the back, left arm, left trunk, and left knee. Extremities: No cyanosis, clubbing, or edema. Radial and pedal pulses intact. Neurological: Alert and oriented x4 at the time of my evaluation. Cranial nerves 2-12 are grossly intact. Speech is somewhat mumbled but understandable. No facial asymmetry. He moves upper and lower extremities but does not participate in the neurologic exam. Fine tremors of the hands. Psychiatric: Poor eye contact. Depressed mood and flat affect. Suspect that he is having visual hallucinations given his bizarre answers however he denies such. Objective Data Vital Signs Vital Signs: Vital Signs - 24 hr 03/22/22 12:00 03/22/22 12:00 03/22/22 16:00 Temperature 98.8 F 98.8 F Pulse Rate 101 H 93 Pulse Rate [Bilateral Pedal (Pollo
[2022-03-23 12:26] LABS: Glucose Point of Care 150 mg/dl (65-105)
[2022-03-23 16:48] LABS: Glucose Point of Care 117 mg/dl (65-105)
--- NOTE | 2022-03-23 17:05 | PC.NURSE ---
Patient and patient mother give verbal consent to speak with Shanna Pedraza and give her any and all information regarding patient care plan/diagnosis. [phone]
[2022-03-23] MEDS: PROPRANOLOL HCL 20 MG TABLET BY MOUTH (20:51)
[2022-03-23 23:57] LABS: Glucose Point of Care 128 mg/dl (65-105)
[2022-03-24] VITALS (9 sets, daily range): BP systolic 136–156; BP diastolic 79–97; PULSE 77–99; RESP 12–20; TEMP 36.4–36.9; O2SAT 95–100
[2022-03-24] MEDS: DEXTROSE 5%/0.9% SOD CHL 1,000 ML 75 ML IV CONT (01:30)
[2022-03-24] MEDS: chlordiazePOXIDE (*CRX) 25 MG CAPSULE 50 MG PO ×2 (01:30→06:34)
[2022-03-24 06:39] LABS: Glucose Point of Care 115 mg/dl (65-105)
[2022-03-24 07:15] LABS: Anion Gap 7 mmol/L (8-16); Blood Urea Nitrogen 9 mg/dL (9-20); Calcium 8.9 mg/dL (8.4-10.2); Carbon Dioxide 25 mmol/L (22-30); Chloride 108 mmol/L (98-107); Estimated CRCL calculation 99 ml/min; Estimated Glomerular Filt Rate > 60; Glucose 114 mg/dL (65-110); Potassium 3.3 mmol/L (3.4-5.0); Sodium 140 mmol/L (137-145)
[2022-03-24] MEDS: FOLIC ACID 1 MG/0.2 ML INJ IV PUSH (08:44)
[2022-03-24] MEDS: POTASSIUM CHLORIDE 20 MEQ PACKET (FOR LIQUID) 40 MEQ PO (08:44)
[2022-03-24] MEDS: PROPRANOLOL HCL 20 MG TABLET BY MOUTH (08:45)
[2022-03-24] MEDS: THIAMINE HCL 200 MG/2 ML VIAL 100 MG IV PUSH (08:46)
--- NOTE | 2022-03-24 10:44 | PM.DS ---
DS: Admitting Diagnosis Discharge Date March 24, 2022 Admitting Diagnosis Alcohol withdrawal DS: Discharge Diagnosis Discharge Diagnosis (1) Fall: Code(s): W19.XXXA - Unspecified fall, initial encounter Status: Acute Assessment and Plan: No significant injury was obtained. (2) Alcohol withdrawal: Code(s): F10.939 - Alcohol use, unspecified with withdrawal, unspecified Status: Acute Assessment and Plan: Cessation counseled to the patient. Patient did refuse placement today treatment center (3) Alcoholic ketoacidosis: Code(s): E87.2 - Acidosis Status: Acute Assessment and Plan: Monitor (4) Dehydration: Code(s): E86.0 - Dehydration Status: Acute Assessment and Plan: Plan is as detailed above. (5) Macrocytic anemia: Code(s): D53.9 - Nutritional anemia, unspecified Status: Acute Assessment and Plan: Hemoglobin and hematocrit are stable on review of previous labs. Check B12, folates, and iron studies. (6) Thrombocytopenia: Code(s): D69.6 - Thrombocytopenia, unspecified Status: Acute Assessment and Plan: Likely related to alcoholism. This is mild and stable on review of previous labs. (7) Transaminitis: Code(s): R74.01 - Elevation of levels of liver transaminase levels Status: Acute Assessment and Plan: Likely related to alcoholic liver disease. Monitor. (8) Elevated CK: Code(s): R74.8 - Abnormal levels of other serum enzymes Status: Acute Assessment and Plan: While patient has reportedly been on the floor since Thursday, his CK not high enough to diagnosed rhabdomyolysis. Continue IV fluids and repeat in a.m. (9) Hyperammonemia: Code(s): E72.20 - Disorder of urea cycle metabolism, unspecified Status: Acute Assessment and Plan: Ammonia is mildly elevated as it was when he was admitted in December. Given his profound dehydration I am hesitant to start lactulose as he is profoundly dry. Will repeat ammonia in a.m. and consider treatment depending on his mentation thereafter. DS: Summary Hospital Course Hospital Course: Patient was admitted for alcohol withdrawal. No seizures. No start on Librium and never required significant escalation and benzodiazepine. Patient also on discharge will be sent home Librium. Had a lengthy discussion about using alcohol while on Librium and how he should not do it he expressed agreement preop. He also refused treatment center placement. Patient be sent home on Librium as needed. I also went over how to deescalate Librium therapy over the next 7-10 days he is agreeable on no statin due in. Time Spent with Patient Time attestation: Total time spent providing and/or coordinating discharge services: Exam Narrative: General: Moderately ill-appearing male sitting up in bed. Weight: 63 kg. BMI: 23.8. HEENT: Abrasion on the left forehead. Contusion on the right frontoparietal region. PERRL, EOMI. Conjunctiva are injected but anicteric. Tacky mucous membranes. Oropharynx not visualized. Neck: Supple. No nuchal rigidity. Respiratory: Lungs are clear to auscultation bilaterally. Cardiovascular: Regular rate and rhythm with S1-S2. Gastrointestinal: Abdomen is soft, nontender, and nondistended with positive bowel sounds. No organomegaly. Skin: Warm and dry. Piloerection of the upper extremities noted. noted to the back, left arm, left trunk, and left knee. Extremities: No cyanosis, clubbing, or edema. Radial and pedal pulses intact. Neurological: Alert and oriented x4 at the time of my evaluation. Cranial nerves 2-12 are grossly intact. Speech is somewhat mumbled but understandable. No facial asymmetry. He moves upper and lower extremities but does not participate in the neurologic exam. Fine tremors of the hands. Psychiatric: Poor eye contact. Depressed mood and flat affect. Suspect that he is hav
--- NOTE | 2022-03-24 12:11 | PC.NURSE ---
Educated patient regarding the benefits of rehab facility to help him get stronger and for safe ambulation. Patient is alert and oriented x4. Patient refuses to go to any rehab facility and states he wants to be discharged home where he resides with his mother. Patient states he has a walker and cane at home and he is able to provide self care without any fear of injury. Patient gave verbal consent to speak to Shanna Pedraza who is a family friend. Spoke with Shanna Pedraza and made her aware of patient situation and she stated she will be the one coming to pick him up and transporting him home.
--- NOTE | 2022-03-24 14:51 | PCNSR ---
On 03/24/22, the student, Katherine Ford provided care and completed [facility] documentation on this patient. I have reviewed the student's documentation and agree with the findings.
== END 2022-03-24 13:18 | disposition home or self-care (01) | DRG 897 ==
LOC: ANHED 16:23 → ANHIMU 20:01
PROVIDERS: Physician Assistant; Admitting Provider Chiropractor; Emergency Provider General Practice; Visit Provider Chiropractor
DX: F10.239 Alcohol dependence with withdrawal, unspecified (principal); E87.2 Acidosis; E72.20 Disorder of urea cycle metabolism, unspecified; E86.0 Dehydration; K70.9 Alcoholic liver disease, unspecified; D53.9 Nutritional anemia, unspecified; D69.6 Thrombocytopenia, unspecified; R74.01 Elevation of levels of liver transaminase levels; R74.8 Abnormal levels of other serum enzymes; M47.812 Spondylosis without myelopathy or radiculopathy, cervical region; W06.XXXA Fall from bed, initial encounter; Z20.822 Contact with and (suspected) exposure to COVID-19; Z86.73 Personal history of transient ischemic attack (TIA), and cerebral infarction without residual deficits
CPT/HCPCS: 36415; 36600; 70450; 71045; 72125; 74177; 80048; 80053; 80307; 81001; 82140; 82375; 82550; 82607; 82728; 82746; 82805; 82948; 83050; 83540; 83550; 83605; 83735; 84443; 85025; 85027; 85055; 85610; 85730; 87040; 93005; 96361; 96365; 96366; 96374; 96375; 97161; 97165; 99285; A9270; C9803; G0378; J2060; J3411; J3475; J7030; J7042; J7120; J7121; Q9967; U0003; U0005